=== PATIENT | male | born 1950 | race Caucasian/White ===

== ENCOUNTER 2024-01-14 19:21 | Emergency (ER) | payer OTHER, SELFPAY ==
[2024-01-14 19:33] VITALS: BP 129/79
[2024-01-14 19:48] LABS: % Basophils 0.7 % (0-2); % Eosinophils 0.8 % (0-6); % Immature Granulocytes 0.3 % (0-0.5); % Lymphocytes 28.7 % (20.5-51.1); % Monocytes 6.2 % (1.7-9.3); % Neutrophils 63.3 % (42.2-75.2); Absolute Basophils 0.1 10^3/uL (0-0.2); Absolute Eosinophils 0.1 10^3/uL (0-0.7); Absolute Lymphocytes 2.2 10^3/uL (1.2-3.4); Absolute Monocytes 0.5 10^3/uL (0.1-0.6); Absolute Neutrophils 4.8 10^3/uL (1.4-6.5); Hematocrit 35.6 % (39.0-52.0); Hemoglobin 12.9 g/dL (13.0-18.0); Mean Corp Hgb Conc. 36.2 g/dL (33.0-37.0); Mean Corpuscular Hgb 33.3 pg (27.0-31.0); Mean Platelet Volume 8.5 fL (7.4-10.4); Nucleated Red Blood Cells % 0 % (-); Platelet Count 281 10^3/uL (130-400); Red Blood Cell Count 3.87 10^6/uL (4.70-6.10); White Blood Cell Count 7.6 10^3/uL (4.8-10.8)
[2024-01-14 20:04] LABS: ALT (SGPT) 23 U/L (0-50); AST (SGOT) 31 U/L (17-59); Albumin 4.3 g/dl (3.5-5.0); Alkaline Phosphatase 44 U/L (38-126); Blood Urea Nitrogen 22 mg/dl (9-20); Calcium 9.3 mg/dl (8.4-10.2); Carbon Dioxide 27 mmol/L (22-30); Chloride 103 mmol/L (98-107); Glucose 138 mg/dl (70-99); Lipase 38 U/L (23-300); Potassium 3.8 mmol/L (3.5-5.1); Sodium 139 mmol/L (135-145); Total Protein 6.7 g/dl (6.3-8.2); eGFR > 60.00
--- NOTE | 2024-01-14 20:42 | ED.GENMED ---
History of Present Illness
General
Chief Complaint: Abdominal Pain
Time Seen by Provider: 01/14/24 20:42
History of Present Illness
History of Present Illness:
HPI: The patient presents with discomfort in the periumbilical region. He has had no fevers. The pain worsens when he tries to bend over at the torso. He has history of periumbilical and left inguinal hernia repair in July 2019.
EXAM:
GENERAL: Well appearing in no distress
HEENT: Moist oral mucosa
CARDIOVASCULAR: No murmurs, normal heart rate, regular rhythm, No chest wall tenderness
PULMONARY: No respiratory distress, breath sounds are clear and equal
ABDOMEN: Soft with no peritoneal signs, no significant tenderness�see below
NEUROLOGIC: Excellent strength all extremities, no coordination deficits
PSYCHIATRIC: Appropriate mental status, normal insight and judgement
EXTREMITIES: Nontender, no edema, moves all extremities equally
SKIN: There is a focal area of indurated tissue in the periumbilical region which is not significantly tender, spreading from this area there is a patch of erythema which is warm consistent with cellulitis
TIME OF INITIAL ENCOUNTER: 8:45 PM
NUMBER AND COMPLEXITY OF PROBLEMS ADDRESSED AT THE ENCOUNTER
� Chronic conditions affecting care: Bronchiolitis, former smoker, high blood pressure, hyperlipidemia, has had hernia repair
� Acute Exacerbation and/or Progression of Chronic Illness: This is an acute problem
� Differential Diagnosis includes: Abdominal wall cellulitis, umbilical hernia, incarcerated hernia unlikely based on physical examination
AMOUNT AND/OR COMPLEXITY OF DATA TO BE REVIEWED AND ANALYZED
� I performed an independent evaluation of and my interpretation is:
EKG:
CT: CT shows inflammatory changes of the subcutaneous tissue but no drainable fluid collection
X-rays:
Laboratory Studies: White count 7.6, hemoglobin 12.9, chemistries relatively unremarkable
Other:
� Review of other/old records: The patient was seen here in July 2019 with abdominal wall hematoma
� Clinical information was obtained by an independent historian: I spoke to the at bedside
� Prescriptions/Medications Considered but not given:
� Further testing considered but not performed:
RISK OF COMPLICATIONS AND/OR MORBIDITY OR MORTALITY OF PATIENT MANAGEMENT
� Social determinants of health affecting care: Lives at home
� Discussion with other providers:
� Escalation of care including admission/observation vs risk of discharge considered: The patient appears fairly comfortable. He has no pain on reassessment at 10:55 PM. White count is normal. Gave a dose of Ancef and will
start Keflex for presumed abdominal wall cellulitis.
Past History
Past History
ED Past Medical History: HTN, Hypercholesterolemia and Other (Sleep apnea)
ED Past Surgical History: Orthopedic (Right knee replacement 2002) and Other (Umbilical and Inguinal hernia repair 07/21/2019, hemorrhoidectomy)
Social History
Tobacco: Non-smoker
Alcohol: Occasional
Drug: None
Personal:
Living: with family
Phy Exam
Physical Exam
Physical Exam:
See HPI
Course
Orders/Labs/Results
Orders:
Orders
01/14/24 19:39
Complete Blood Count/With Diff Urgent
Comprehensive Metabolic Panel Urgent
Lipase Urgent
01/14/24 20:51
CT Abd/pelvis W Iv Cont Urgent
Comment:
Reason For Exam: periumb pain prior umb hernia surgery
01/14/24 20:52
Acetaminophen [Tylenol] 1,000 mg PO NOW STA
01/14/24 22:41
CeFAZolin 1 GRAM [Ancef] 1 gram in 5 ml IV NOW
Abnormal Lab Results
01/14/24
19:39
RBC 3.87 L 10^6/uL
(4.70-6.10)
Hgb 12.9 L g/dL
(13.0-18.0)
Hct 35.6 L %
(39.0-52.0)
MCH 33.3 H pg
(27.0-31.0)
BUN 22 H mg/dl
(9-20)
Glucose 138 H mg/dl
(70-99)
01/14/24 19:39
01/14/24 19:39
Vital Signs
Initial and Last Documented VS:
Initial Vital Signs
Temp Pulse Resp BP Pulse Ox
98.8 F 90 18 129/79 99
01/14/24 19:33 01/14/24 19:33 01/14/24 19:33 01/14/24 19:33 01/14/24 19:33
Last Documented Vital Signs
Temp Pulse Resp BP Pulse Ox
98.8 F 90 18 129/79 99
01/14/24 19:33 01/14/24 19:33 01/14/24 19:33 01/14/24 19:33 01/14/24 19:33
*Critical Care Note
Total Time (30-74mins, 75-104mins- exclusive of procedures): Not Applicable
ED Attending Note
-
Portions of this chart may have been created with voice recognition software.� Occasional wrong word or��sound alike� substitutions may have occurred due to the inherent limitations of voice recognition software.
Discharge Plan
Departure
Patient Disposition: Home (Routine Discharge)
Date of Disposition: 01/14/24
Time of Disposition: 22:51
Patient with high blood pressure during this ER visit?: Yes
Discharge Problem:
Abdominal wall cellulitis
Instructions: Cellulitis (Skin Infection), Adult ED
Prescriptions:
New
cephalexin 500 mg capsule
500 mg PO TID Qty: 21 0RF
No Action
ascorbic acid (vitamin C) [Vitamin C] 500 MG tablet
500 mg PO DAILY
simvastatin 20 MG tablet
20 mg PO DAILY
omega [id number]-fish oil [Fish Oil] 1 EACH capsule
1 cap PO DAILY
lisinopril-hydrochlorothiazide 1 EACH tablet
1 tab PO BID
Referrals:
Tra Farnsworth MD [Family Provider] -
Activity Restrictions/Additional Instructions:
Your white count and other basic blood work was unremarkable. The CAT scan showed a 'tiny fat-containing periumbilical hernia and the skin and subcutaneous tissue showed some inflammation that may represent cellulitis; there is no drainable fluid'.
Follow-up your primary care doctor. Return here if worse at any time and you should return here on Wednesday if there has been no improvement by then.
Interventions
Interventions:
*General Assessment Last Done: 01/14/24 19:33
ED- Fall Risk Assessment Last Done: 01/14/24 21:22
TW-Jizlvp-Giiqsxrzoa Assessment Last Done: 01/14/24 21:22
Discharge Date and Time
Print Language: SERBIAN
[2024-01-14] MEDS: TYLENOL 1000 MG PO (21:12)
[2024-01-14 22:30] VITALS: BP 122/78
[2024-01-14 22:53] VITALS: BMI 32.6
[2024-01-14] MEDS: ANCEF 5 IV (23:06)
== END 2024-01-14 23:16 | disposition home or self-care (01) ==
LOC: EMR 19:21
PROVIDERS: Emergency Medicine; EMERGENCY PHYSICIAN Emergency Medicine; FAMILY PHYSICIAN Family Medicine
DX: L03.311 Cellulitis of abdominal wall (principal); E78.00 Pure hypercholesterolemia, unspecified; G47.30 Sleep apnea, unspecified; I10 Essential (primary) hypertension; Z96.651 Presence of right artificial knee joint
CPT/HCPCS: 99284; 96374; 74177; 80053; 83690; 85025; Q9967

== ENCOUNTER → 2024-04-06 15:58 | Outpatient (REF) | payer OTHER, SELFPAY | LOC: RCS 15:58 | PROVIDERS: ATTENDING PHYSICIAN Internal Medicine Cardiovascular Disease; FAMILY PHYSICIAN Family Medicine | DX: I48.91 Unspecified atrial fibrillation (principal) | CPT/HCPCS: 93306 ==

== ENCOUNTER → 2024-04-27 09:07 | Day surgery (SDC) | payer OTHER, SELFPAY ==
--- NOTE | 2024-04-27 11:06 | ITS.CL.CARDI ---
Claim [facility]ver - Cardioversion
Cardioversion
Procedure Report:
Procedure: Direct current electrical cardioversion
Pre-operative diagnosis: Persistent atrial fibrillation
Post-operative diagnosis: Persistent atrial fibrillation status post DC cardioversion to sinus rhythm
Anesthesia: MAC
Attending Physician: Berto Mcdermott MD
Procedure Description: The patient was brought to the electrophysiology laboratory in the fasting state. Adherence to anticoagulation regimen was confirmed. Informed consent was obtained from the patient prior to the start of the procedure.
Electrodes were placed on the patient and connected to an external defibrillator. Monitoring of blood pressure, ECG tracings, and pulse oximetry was initiated. The pads were applied to the patient in the anterior and posterior positions. The patient
was sedated by the anesthesiologist. A 200 joule and subsequent 300 joule biphasic synchronized shock was delivered to the patient under MAC anesthesia. Sinus rhythm was successfully restored. The patient recovered uneventfully from MAC anesthesia.
There were no immediate post-procedure complications. The patient left the lab in good condition. The attending physician was present throughout the entire procedure.
Impression: Successful direct current cardioversion with hindu of sinus rhythm after 200 joule and subsequent 300 joule biphasic synchronized shock.
== END ==
LOC: CATH 09:07
PROVIDERS: ATTENDING PHYSICIAN Internal Medicine Cardiovascular Disease; FAMILY PHYSICIAN Family Medicine; OTHER PHYSICIAN Internal Medicine Cardiovascular Disease
DX: I48.19 Other persistent atrial fibrillation (principal); I44.5 Left posterior fascicular block; I10 Essential (primary) hypertension; E78.5 Hyperlipidemia, unspecified; G47.33 Obstructive sleep apnea (adult) (pediatric); Z87.891 Personal history of nicotine dependence; Z79.01 Long term (current) use of anticoagulants
CPT/HCPCS: 92960; 93005

== ENCOUNTER → 2024-05-09 13:58 | Outpatient (REF) | payer OTHER, SELFPAY | LOC: PET 13:58 | PROVIDERS: ATTENDING PHYSICIAN Nurse Practitioner | DX: Z01.810 Encounter for preprocedural cardiovascular examination (principal); R53.83 Other fatigue; I48.91 Unspecified atrial fibrillation; R00.1 Bradycardia, unspecified; I10 Essential (primary) hypertension; G47.33 Obstructive sleep apnea (adult) (pediatric); R06.02 Shortness of breath | CPT/HCPCS: 78431; A9555; J2785 ==

== ENCOUNTER → 2024-07-24 09:22 | Outpatient (REF) | payer OTHER, SELFPAY | LOC: HWRCS 09:22 | PROVIDERS: ATTENDING PHYSICIAN Nurse Practitioner; FAMILY PHYSICIAN Family Medicine | DX: I49.3 Ventricular premature depolarization (principal) | CPT/HCPCS: 93306 ==

== ENCOUNTER 2024-08-03 07:10 | Day surgery (SDC) | payer OTHER, SELFPAY ==
[2024-08-03 07:48] VITALS: BMI 32.1
== END 2024-08-03 09:48 | disposition home or self-care (01) ==
LOC: CATH 07:10
PROVIDERS: ATTENDING PHYSICIAN Internal Medicine Cardiovascular Disease; FAMILY PHYSICIAN Family Medicine; OTHER PHYSICIAN Internal Medicine Cardiovascular Disease
DX: I08.3 Combined rheumatic disorders of mitral, aortic and tricuspid valves (principal); I08.8 Other rheumatic multiple valve diseases; I70.0 Atherosclerosis of aorta
CPT/HCPCS: 93312; 93320; 93325

== ENCOUNTER 2024-08-08 07:06 | Day surgery (SDC) | payer OTHER, SELFPAY ==
[2024-08-08] VITALS (9 sets, daily range): BP systolic 124–174; BP diastolic 77–92; BMI 32.4
[2024-08-08 07:38] LABS: Hematocrit 41.2 % (39.0-52.0); Hemoglobin 15.2 g/dL (13.0-18.0); Mean Corp Hgb Conc. 36.9 g/dL (33.0-37.0); Mean Corpuscular Hgb 34.5 pg (27.0-31.0); Mean Corpuscular Volume 93.6 fL (80.0-94.0); Mean Platelet Volume 8.7 fL (7.4-10.4); Platelet Count 249 10^3/uL (130-400); Red Cell Dist. Width 12.7 % (11.5-14.5); White Blood Cell Count 6.6 10^3/uL (4.8-10.8)
[2024-08-08] MEDS: NSS 307 ML IV (07:45)
[2024-08-08 07:54] LABS: APTT 29.5 Sec (23.4-35.0); INR 1.04; PT 13.9 Sec (11.4-14.6)
[2024-08-08 07:55] LABS: ALT (SGPT) 23 U/L (0-50); AST (SGOT) 30 U/L (17-59); Albumin 4.5 g/dl (3.5-5.0); Alkaline Phosphatase 49 U/L (38-126); Blood Urea Nitrogen 15 mg/dl (9-20); Calcium 9.1 mg/dl (8.4-10.2); Carbon Dioxide 29 mmol/L (22-30); Chloride 104 mmol/L (98-107); Estimated Creatinine Clearance 109 ml/min; Glucose 96 mg/dl (70-99); Potassium 3.9 mmol/L (3.5-5.1); Sodium 144 mmol/L (135-145); Total Bilirubin 0.9 mg/dl (0.2-1.3); Total Protein 7.1 g/dl (6.3-8.2); eGFR > 60.00
--- NOTE | 2024-08-08 09:07 | ITS.CL.CATH ---
Certified [employer] Engineer - Catheterization
Cardiac Catheterization
Procedure Report:
LEFT AND RIGHT HEART CATHETERIZATION
Date of Procedure: August 08, 2024
Referring: Winston Martines MD
PROCEDURES:
1. Left heart catheterization, coronary angiogram.
2. Right heart catheterization.
3. Ultrasound-guided access
INDICATION: Pre-consideration for mitral valve repair versus replacement--referral for left and right heart catheterization to rule out obstructive CAD and assess invasive hemodynamics.
ACCESS:
1. Right radial artery, 6 Malaysian sheath, under ultrasound guidance.
2. Right brachial vein, 6 Malaysian sheath
Ultrasound was utilized for vascular access. The radial artery was visualized under ultrasound, and the vessel was patent and pulsatile. An image was stored permanently in the patient's medical record. Under direct ultrasound guidance, a 6 Malaysian
sheath was inserted into the artery using a micropuncture kit through a modified Seldinger technique.
HEMODYNAMICS : (mmHg)
RA (m) : 7
RV (s/d,m) : 35/4, 8
PA (s/d, m) : 35/14, 23
PCWP (m) : 14
PA saturation: 76.1% on room air
AO saturation: 91.9% on room air
SVC saturation: 73.2% on room air
Cardiac Output : 7.18 L/min
Cardiac Index : 3.27 L/min/m-2
Systemic vascular resistance: 924 dsc^(-5)
Pulmonary vascular resistance: 1.06 mattson unit
Heart rate: 63 bpm
AO (s/d) : 121/70
LV (s/d) : 122/7
LVEDP : 14
CORONARY FINDINGS
DOMINANCE: Right
LEFT MAIN: The left main artery is a large-caliber vessel which gives rise to the left anterior descending artery and the left circumflex artery. In cranial views there is mild 10 to 20% ostial atherosclerotic plaque.
LEFT ANTERIOR DESCENDING: The left anterior descending artery is a large-caliber vessel which gives rise to 2 small to medium caliber diagonal branches as it courses to the anterior interventricular groove and wraps around the apex. There is 20 to
30% stenosis in the proximal LAD at the level of the takeoff of D1. Otherwise there is minimal luminal irregularities.
CIRCUMFLEX: The left circumflex artery is a medium caliber vessel which gives rise to 2 major obtuse marginal branches. There is minimal luminal irregularities.
RIGHT CORONARY ARTERY: The right coronary artery is a large-caliber, dominant vessel which gives rise to the right posterior descending artery and the right posterolateral system. There is minimal luminal irregularities.
SEDATION: 26 minutes of procedural sedation was utilized. An independent medical chemist was present to assist with and help manage the patient's level of consciousness and physiologic status.
RADIATION SUMMARY: Fluoro Time (min): 3.1, Dose (mGy): 437.35, DAP (Gy.cm2) : 31.47
Closure Device: 1. Vascular band over the right radial artery, 10 cc of air.
2. Manual pressure was held over the right brachial venous access site with successful hemostasis.
CONCLUSIONS
1. No obstructive coronary artery disease.
2. Mildly elevated right and left-sided filling pressures with normal cardiac output.
RECOMMENDATIONS
1. Wean radial band per protocol.
2. Aggressive management of cardiovascular risk factors.
3. Patient is scheduled to see Dr. Bertin Horton from cardiothoracic surgery for consideration for surgical mitral valve intervention.
4. Eventual referral for outpatient cardiac rehab
Copy to: Bertin Horton, Florentino Martines, Yanick Fry, Tra Farnsworth
Jannette Menjivar MD, [facility], [facility]
[2024-08-08] MEDS: NSS 1000 IV (09:46)
== END 2024-08-08 12:00 | disposition home or self-care (01) ==
LOC: CATH 07:06
PROVIDERS: ATTENDING PHYSICIAN Internal Medicine Interventional Cardiology; FAMILY PHYSICIAN Family Medicine; OTHER PHYSICIAN Internal Medicine Cardiovascular Disease
DX: I08.3 Combined rheumatic disorders of mitral, aortic and tricuspid valves (principal); I25.10 Atherosclerotic heart disease of native coronary artery without angina pectoris; Z79.01 Long term (current) use of anticoagulants; Z79.899 Other long term (current) drug therapy; I70.0 Atherosclerosis of aorta
CPT/HCPCS: 99152; 99153; 76937; 80053; 85027; 85610; 85730; 93460; C1894; Q9967

== ENCOUNTER 2024-08-29 05:06 | Inpatient (IN) | payer OTHER, SELFPAY ==
[2024-08-22 09:45] LABS: ALT (SGPT) 19 U/L (0-50); AST (SGOT) 27 U/L (17-59); Albumin 4.1 g/dl (3.5-5.0); Alkaline Phosphatase 51 U/L (38-126); Blood Urea Nitrogen 15 mg/dl (9-20); Carbon Dioxide 31 mmol/L (22-30); Chloride 104 mmol/L (98-107); Direct Bilirubin 0.2 mg/dl (0.0-0.4); Glucose 115 mg/dl (70-99); Sodium 141 mmol/L (135-145); Total Bilirubin 1.1 mg/dl (0.2-1.3); Total Protein 6.6 g/dl (6.3-8.2); eGFR > 60.00
[2024-08-22 09:48] LABS: % Basophils 0.7 % (0-2); % Eosinophils 0.9 % (0-6); % Immature Granulocytes 0.2 % (0-0.5); % Lymphocytes 20.1 % (20.5-51.1); % Monocytes 7.3 % (1.7-9.3); % Neutrophils 70.8 % (42.2-75.2); Absolute Eosinophils 0.1 10^3/uL (0-0.7); Absolute Lymphocytes 1.2 10^3/uL (1.2-3.4); Absolute Monocytes 0.4 10^3/uL (0.1-0.6); Absolute Neutrophils 4.2 10^3/uL (1.4-6.5); Hematocrit 39.8 % (39.0-52.0); Hemoglobin 14.3 g/dL (13.0-18.0); INR 1.36; Mean Corp Hgb Conc. 35.9 g/dL (33.0-37.0); Mean Corpuscular Hgb 34.5 pg (27.0-31.0); Mean Corpuscular Volume 95.9 fL (80.0-94.0); Mean Platelet Volume 8.8 fL (7.4-10.4); Nucleated Red Blood Cells % 0 % (-); Platelet Count 231 10^3/uL (130-400); Red Blood Cell Count 4.15 10^6/uL (4.70-6.10); White Blood Cell Count 5.9 10^3/uL (4.8-10.8)
[2024-08-22 09:49] LABS: APTT 34.6 Sec (23.4-35.0)
[2024-08-22 09:57] LABS: Urine Albumin Negative (Neg - Trace); Urine Bilirubin Negative (Negative); Urine Character Clear (Clear); Urine Color Yellow; Urine Glucose Negative (Negative); Urine Ketone Negative (Negative); Urine Leukocyte Negative (Negative); Urine Nitrite Negative (Negative); Urine Occult Blood 2+ (Negative); Urine Urobilinogen Negative (Neg - 1+)
[2024-08-22 10:34] LABS: Glycohemoglobin (HgbA1c) 5.3 % (4.0-5.6)
[2024-08-22 10:41] LABS: Urine Mucus Moderate
[2024-08-22 10:42] LABS: Urine Amorphous Seen; Urine Squamous Cell 0-2 /LPF (Few)
[2024-08-22 10:43] LABS: Urine White Cell 0-2 /HPF (0-5)
--- NOTE | 2024-08-22 11:02 | CM ---
spoke to pt in PAT, we discussed preop MV/TV teaching. he is previndep, lives with his in a 1 story home with 1 step to enter. he has a walker at home to use if needed and a cpap he uses at night. i asked him to bring in his own mask. he has
the cardiac educ book, soap and instructions. he is agreeable to a f/u visit from the ct transitional care nurse after dc. plan is for TV/MV repair 08/29. cm role explained and all questions answered.
[2024-08-22 14:01] VITALS: BMI 24.9
[2024-08-29] VITALS (7 sets, daily range): BP systolic 94–154; BP diastolic 71–108; BMI 31.5
[2024-08-29] MEDS: MAGNESIUM OXIDE 500 MG PO (06:12)
[2024-08-29] MEDS: PROTONIX 40 MG PO (06:12)
[2024-08-29] MEDS: BACTROBAN 2% OINTMENT 1 APPLIC NASAL ×2 (06:14→19:43)
--- NOTE | 2024-08-29 06:20 | W.PN.UPDATE ---
Update Note
Progress Note Update
Pt's HR in the 40's this AM. Preop Lopressor contraindicated and not given
--- NOTE | 2024-08-29 06:26 | W.CVOR.SURPR ---
CVOR Surgeon Immed Pre Op
-
I have examined this patient prior to performance of the scheduled procedure.
The patient's condition is unchanged from the time of the dictated/written History and
Physical and the patient is able to undergo the scheduled procedure.
MV Repair/ TV Repair / MAZE / WHITLEY Clip / Epicardial Pacing Wires
--- NOTE | 2024-08-29 06:51 | PTCARENOTE ---
Pt arrived to CVICU for SDA. pt changed in gown/socks, all jewlery removed. pt name/ confirmed, ID bands place. ABO drawn and sent. pt clipped per protocol and cleaned with CHG wipes, x2 home showers confirmed. home medications reviewed and
confirmed. all admission questions answered by pt. pre-op check list review with pt. pre-op medications administered, lopressor held due to Bradycardia per Dr Horton, see MAR. awaiting CVOR.
[2024-08-29 07:49] LABS: Glucose - POC 89 mg/dl (70-99); HCO3 - POC 30 mmol/L (21-28); Hematocrit - POC 35 % PCV (42-52); Hemodilution- POC No; Ionized Calcium - POC 1.22 mmol/L (1.15-1.33); O2 Saturation %Calculated-POC 72.7 % (94-98); PCO2 - POC 51 mmHg (35-48); PO2 - POC 40 mmHg (83-108); Potassium - POC 3.4 mmol/L (3.5-5.1); Sodium - POC 144 mmol/L (136-145); Specimen Type - POC Arterial; pH - POC 7.38 (7.35-7.45)
[2024-08-29 07:53] LABS: B.E. - POC 5.6 mmol/L; Glucose - POC 94 mg/dl (70-99); HCO3 - POC 30 mmol/L (21-28); Hematocrit - POC 34 % PCV (42-52); Hemodilution- POC No; Hemoglobin Calculated - POC 11.4; PCO2 - POC 40 mmHg (35-48); PO2 - POC 445 mmHg (83-108); Potassium - POC 3.4 mmol/L (3.5-5.1); Sodium - POC 142 mmol/L (136-145); Specimen Type - POC Arterial; pH - POC 7.48 (7.35-7.45)
[2024-08-29 07:56] LABS: Urine Albumin 2+ (Neg - Trace); Urine Bilirubin Negative (Negative); Urine Character Clear (Clear); Urine Color Yellow; Urine Glucose Negative (Negative); Urine Ketone Negative (Negative); Urine Leukocyte Negative (Negative); Urine Nitrite Negative (Negative); Urine Occult Blood 1+ (Negative); Urine Urobilinogen Negative (Neg - 1+)
[2024-08-29 08:15] LABS: Urine Bacteria Few (Negative); Urine Red Blood Cell 0-2 /HPF (0-2); Urine White Cell 16-20 /HPF (0-5)
[2024-08-29 08:16] LABS: Urine Squamous Cell 0-2 /LPF (Few)
[2024-08-29 08:17] LABS: Urine Hyaline Cast 0-2 /LPF (0-2); Urine Mucus Moderate
--- NOTE | 2024-08-29 08:21 | CM ---
Reviewed chart. Mr. Merritt is in the operating room today. Prior to admission he resides with his spouse in a one story home with one step to enter. Prior to admission he was independent with ambulation and adls. He has a walker and CPAP Machine
at home. He has a prescription plan. Medical work-up in progress. The discharge plan is to return home with his spouse and a home visit by the Transitional Care Nurse when medically stable.
[2024-08-29 08:33] LABS: ACT+ - POC 597 Seconds (82-134)
[2024-08-29 08:55] LABS: ACT+ - POC 603 Seconds (82-134)
[2024-08-29 09:23] LABS: B.E. - POC 5.7 mmol/L; Glucose - POC 109 mg/dl (70-99); HCO3 - POC 30 mmol/L (21-28); Hematocrit - POC 32 % PCV (42-52); Hemodilution- POC Yes; Hemoglobin Calculated - POC 10.9; Ionized Calcium - POC 1.02 mmol/L (1.15-1.33); PCO2 - POC 39 mmHg (35-48); PO2 - POC 389 mmHg (83-108); Potassium - POC 4.4 mmol/L (3.5-5.1); Sodium - POC 142 mmol/L (136-145); Specimen Type - POC Arterial; pH - POC 7.48 (7.35-7.45)
[2024-08-29 09:35] LABS: ACT+ - POC 567 Seconds (82-134)
[2024-08-29 09:49] LABS: B.E. - POC 7.4 mmol/L; Glucose - POC 129 mg/dl (70-99); HCO3 - POC 31 mmol/L (21-28); Hematocrit - POC 34 % PCV (42-52); Hemodilution- POC Yes; Hemoglobin Calculated - POC 11.7; Ionized Calcium - POC 1.11 mmol/L (1.15-1.33); O2 Saturation %Calculated-POC 99.9 % (94-98); PCO2 - POC 37 mmHg (35-48); PO2 - POC 286 mmHg (83-108); Potassium - POC 3.8 mmol/L (3.5-5.1); Sodium - POC 143 mmol/L (136-145); Specimen Type - POC Arterial; pH - POC 7.53 (7.35-7.45)
[2024-08-29 10:00] LABS: ACT+ - POC 526 Seconds (82-134)
[2024-08-29 10:19] LABS: B.E. - POC 4.7 mmol/L; Glucose - POC 124 mg/dl (70-99); HCO3 - POC 29 mmol/L (21-28); Hematocrit - POC 33 % PCV (42-52); Hemodilution- POC Yes; Hemoglobin Calculated - POC 11.3; Ionized Calcium - POC 1.09 mmol/L (1.15-1.33); O2 Saturation %Calculated-POC 99.9 % (94-98); PCO2 - POC 41 mmHg (35-48); PO2 - POC 252 mmHg (83-108); Potassium - POC 4.3 mmol/L (3.5-5.1); Sodium - POC 144 mmol/L (136-145); Specimen Type - POC Arterial; pH - POC 7.46 (7.35-7.45)
[2024-08-29 10:28] LABS: ACT+ - POC 482 Seconds (82-134)
[2024-08-29 10:57] LABS: B.E. - POC 2.6 mmol/L; Glucose - POC 114 mg/dl (70-99); HCO3 - POC 27 mmol/L (21-28); Hematocrit - POC 34 % PCV (42-52); Hemodilution- POC Yes; Hemoglobin Calculated - POC 11.5; Ionized Calcium - POC 1.07 mmol/L (1.15-1.33); O2 Saturation %Calculated-POC 99.9 % (94-98); PCO2 - POC 40 mmHg (35-48); PO2 - POC 242 mmHg (83-108); Potassium - POC 4.4 mmol/L (3.5-5.1); Sodium - POC 143 mmol/L (136-145); Specimen Type - POC Arterial; pH - POC 7.44 (7.35-7.45)
[2024-08-29 11:05] LABS: Glucose - POC 119 mg/dl (70-99); HCO3 - POC 25 mmol/L (21-28); Hematocrit - POC 36 % PCV (42-52); Hemodilution- POC Yes; Hemoglobin Calculated - POC 12.2; Ionized Calcium - POC 1.24 mmol/L (1.15-1.33); PCO2 - POC 32 mmHg (35-48); PO2 - POC 341 mmHg (83-108); Potassium - POC 4.1 mmol/L (3.5-5.1); Sodium - POC 143 mmol/L (136-145); Specimen Type - POC Arterial
[2024-08-29 11:06] LABS: ACT+ - POC 134 Seconds (82-134)
--- NOTE | 2024-08-29 11:40 | PTCARENOTE ---
Pre-operative VS captured via [employer] monitor.
--- NOTE | 2024-08-29 11:47 | W.PN.CT.SURG ---
CT Surgery Operative Note
-
CARDIAC SURGERY OPERATIVE REPORT
Preoperative Diagnosis: Myxomatous mitral valve degeneration with severe insufficiency, moderately severe tricuspid valve insufficiency, atrial fibrillation
Postoperative Diagnosis: Same
Procedure(s) Performed:
1. Standard sternotomy with aortic and bicaval cannulation
2. Radical mitral valve repair [closure of cleft between P1 and P2, and P2 and P3, Kosse-Lopez cords placed to the posterior leaflet x 3, cleft closure between A2 and A3, 38 mm band annuloplasty]
3. Simple tricuspid valve repair [30 mm band annuloplasty]
4. Left atrial maze [combination of RF and cryo ablation]
5. Left atrial appendage exclusion
6. Placement of permanent epicardial pacing wires on the RV and RA
7. Transesophageal echocardiography
8. Placement of temporary atrial ventricular pacing wire
Date of Surgery: 08/29/2024
Comorbidities:
1. Severe mitral valve insufficiency secondary to type II pathology with flail segment and prolapse and flail (torn cords) of P2, symptomatic
2. Bradycardia at baseline with heart rates in the 30s to 40s
3. History of atrial fibrillation, paroxysmal
4. Moderately severe tricuspid valve insufficiency
5. Hypertension
6. Hyperlipidemia
7. PSVT with PVCs
8. LILIANA on CPAP
9. Morbidly obese with a BMI of greater than 30
10. Multiple urological procedures
Attending Surgeon: Bertin Horton MD, MS
Assistants: Tasneem Wang PA-C (present and necessary to veterinary assistant, retraction, suction, exposure, suture management, and wound closure under my direction)
Anesthesiology: Sanket Clark MD and Ponce Briseno CRNA
Scrub and Circulating RNs: Dianna Barr, RN, Son Perry RN
Meat Trimmer: Marium Guerrero CCP
Anesthesia: GETA
EBL: per perfusion records
Products: None
CPB Time: 120 minutes
Aortic Cross Clamp Time: 105 minutes
Indication(s) for Procedures: This is a 73-year-old male who has become increasingly shortness of breath with activities with overall decline in exercise capacity. He has known mitral valve insufficiency with a large Coanda effect that was severe
in its severity. He also had mildly severe tricuspid valve insufficiency and biatrial dilatation and paroxysmal atrial fibrillation. In the office he had a heart rate in the 40s given his history of atrial fibrillation he was offered a left atrial
maze in conjunction to his mitral valve repair and tricuspid valve repair. Due to his higher risk of needing a permanent pacemaker, and with his tricuspid valve repair making RV access likely difficult, I plan to implant epicardial pacing wires.
Mitral Valve Description: Thickening of most of the posterior leaflet with a large prolapse segment of P2 and some torn cords at the free margin, significant asymmetrical annular dilatation mostly towards P2 and P3. Large cleft between P1 and P2
and P2 and P3, small cleft between A2 and A3.
Findings: His left ventricular ejection fraction preoperatively was on the lower end of normal without significant regional wall motion abnormalities. He had mild to moderate degree of tricuspid valve insufficiency at the beginning of the case
however on his preoperative echocardiograms he had known moderately severe tricuspid valve insufficiency. His mitral valve had a flail segment with some torn cords at the free margin of P2 and large cleft between P1 and P2 and P2 and P3. The flail
cords was resected and then P2 and P3 was imbricated as was P1 and P2. 3 CV 4 Kosse-Lopez sutures were placed along the posterior leaflet mostly aimed towards P2. A total of 11 nonpledgeted 2 Ethibond sutures were placed circumferentially from
trigone to trigone securing a 38 mm band annuloplasty. There was only trace residual mitral valve insufficiency between clefts, no systolic anterior motion of the leaflets, and a mean gradient of 0 to 1 mmHg across the valve. This was done with
core knots. Given the significantly dilated left atrium and annulus, I was unable to test his valve properly intraoperatively however the physiology looked appropriate and so we continued moving forward. A full left atrial maze was performed using
a combination of encompass RF ablation to perform the posterior wall isolation and left atrial appendage line into the left superior pulmonary vein. Cryo was then used to complete the lesion set for the coronary sinus and mitral annular lines. The
left atrial appendage was clipped with a 35 mm device flush to the base. The tricuspid valve was accessed via the right atrium and repaired using a 30 mm band annuloplasty tying a total of 10 nonpledgeted 2 Ethibond sutures from the midportion of
the septal leaflet to the anterior septal commissure. A set of epicardial pacing wires was placed on the RV base and a set was placed at the right atrial appendage and was tested intraoperatively secured in place with 5-0 Prolene sutures. The
ventricular pacing wires yielded an excellent threshold with a voltage of 0.5, impedance of 1178, and the right atrial side initially required higher threshold then reduced by half as the case continue to a voltage of 3.5 and impedance of 856.
Temporary atrial ventricular pacing wires were also left and placed in order to control his rhythm. At the conclusion of the case his index had remained stable at 1.8-1.9 from 1.9 preoperatively. He did not require any inotropic support, he did
progress into a junctional rhythm in the 50s to 60s and so we AV paced him at a higher rate. Dobutamine was also started intraoperatively but then was quickly weaned as he became hypotensive.
Ablation Lines:
1. Box lesion to posterior LA wall
2. WHITLEY lesion + WHITLEY Exclusion + Division of Ligament of Jaylan
3. Coronary sinus lesion
4. Posterior mitral annular line toward P2/P3
Specimen(s): None.
Prosthesis:
1. 35 mm clip, serial #[id number]
2. Physio flex annuloplasty band, 38 mm, serial #[id number]
3. TriAD tricuspid annuloplasty band, 30 mm, serial number [id number]
4. Ventricular epicardial wires, serial number L [id number] (Medtronic)
5. Atrial epicardial wires, serial number L [id number] ([employer]tronic)
6. 3 CV 4 Kosse-Lopez sutures to anchor the posterior leaflet
Description of Procedure: The patient was taken to the operating room. Their identity and procedure to be performed were verified and they were positioned supine on the operating table. Induction via general anesthesia with endotracheal intubation
was performed and central venous access and arterial monitoring were inserted. A preoperative transesophageal echocardiogram was performed to assess cardiac function and valvular function. The patient was then prepped and draped from chin to feet in
a sterile fashion. A preoperative time-out was performed with all members of the team present. A midline chest incision was performed along with median sternotomy. The innominate vein was isolated. Full heparinization was given (a total of 45,000
units). We created a pericardial well. The aortic cannulation site was chosen where it was soft, pliable, and free of calcium. Cannulation was performed with an arterial cannula in the ascending aorta, angled metal tip cannular in the superior vena
cava and straight bendable cannula in the inferior vena cava. The arterial cannula line had an appropriate bounce and correlating pressures. Next, a root vent/antegrade cannula was inserted into the ascending aorta. The ACT was confirmed to be over
400 and retrograde autologous priming was performed before commencing cardiopulmonary bypass. At this point the SVC was away from the right pulmonary vein and the oblique sinus was developed manually. The encompass clamp was placed
underneath the SVC and IVC across the transverse and oblique sinuses and 3 successful pairs of ablation were performed using RF ablation. The pulmonary artery was away from the aorta to facilitate a clamp site. The aortic cross-clamp was
placed after decreasing the flow on the bypass and mean arterial pressure. A total of 1.2L initial dose of antegrade Del-Nido cardioplegia solution was given and planned for re-dosing every 60 minutes as necessary. There was rapid electro-mechanical
arrest of the heart at 300 cc of cardioplegia. The left ventricle was observed for distention on echocardiogram and manual palpation. Cold slush was placed into a lap on the RV and we systemically cooled to 34 degrees centigrade. Once the heart was
fully arrested, it was rotated medially and the ligament of Jaylan was divided. The tip of the left atrial appendage was then cut off and the encompass clamp was then passed through the appendage into the left superior pulmonary vein to complete
2 more pairs of successful ablation lines. The left atrial appendage was then sized with 35 mm device which was applied flush to the base.
Carbon dioxide was used to flood the field. The mitral valve was access via the left atrium at Sondergaard's groove followed by valve analysis. 2 additional cryo lines were created towards the mitral annulus and the coronary sinus. The mitral
valve was repaired as described above. The left ventricular vent was repositioned across the mitral valve into the left ventricular and the left atrium was closed with a 3-0 prolene. At this point Vesseloops were used to snare the SVC and IVC and a
vertical incision was created along the right atrium and stay sutures were placed. A total of 10 nonpledgeted 2 Ethibond sutures were placed circumferentially from the midportion of the septal leaflet to the anterior septal commissure. This
secured at 30 mm band [address]oplasty in place which was tied down manually. At this point the first layer of closure of the right atrium was then performed with 5-0 Prolene and I turned my attention towards placing epicardial pacing leads on the RV
basilar wall. Once this was completed, the head was dropped down and the area maneuvers were performed. The snares were removed after dropping flows on cardiopulmonary bypass, the cross-clamp was removed, flows were then brought up accordingly.
While the heart was reperfusing, the remainder of the right atrial closure was performed in her second running layer. Temporary atrial ventricular pacing wires were also placed at the SVC right atrial junction and the base of the RV. I also placed
permanent epicardial wires at the right atrial appendage. Both the RV and RA permanent leads were tested.
Transesophageal echocardiography revealed no evidence of systolic anterior motion and ventricular function was normal. Once de-airing was satisfactory the left ventricular and root vents were removed. After verifying acceptable parameters, we
initiated weaning from cardiopulmonary bypass. Once we were off cardiopulmonary bypass, the venous cannulas was clamped and removed sequentially. A test dose of protamine was administered and the patient was monitored for any adverse reaction before
resuming protamine. Once half of the protamine dose was delivered, pump suckers were turned off and the systolic blood pressure was lowered for aortic decannulation. The aortic cannula was removed and purse strings were tied down. All cannulation
sites were oversewn with a 4-0 prolene. The left atrial suture line was inspected and hemostasis was confirmed. I then tunneled the permanent epicardial leads through the second intercostal space towards the right chest after making a small
incision over where a future permanent pacemaker would lie. A pocket was developed and the tips of the leads were then capped and secured to the fascia with a 2-0 Ethibond suture. This was closed in layers. Mediastinal hemostasis was obtained.
Two #24 Luis Daniel drains were placed within the pericardium. The sternum was approximated with 4 #7 single and 3 #8 double stainless steel wires. I made sure that the epicardial leads were free from the chest closure wires and not snagged or damage.
Fascia was approximated with #1 vicryl suture. The subcutaneous, dermis and epidermis were closed in layers in a running fashion. The skin wound was cleansed and dressed.
All instrument, sponge, and needle counts were confirmed to be correct x 2 at the end of the operation. The patient was transferred to the cardiac intensive care unit in critical but stable condition.
I, Dr. Betrin Horton, was present, scrubbed for, and performed all critical elements of this procedure.
Bertin Horton MD, MS
Cardiothoracic Surgeon
[facility]
This dictation was created using the [employer] dictation system. Please excuse any grammatical, typographical, or 'sound alike' errors
[2024-08-29 12:02] LABS: Glucose - Point of Care 129 mg/dl (70-99)
[2024-08-29] MEDS: LR 250 ML IV ×3 (12:06→16:48)
[2024-08-29 12:12] LABS: HCO3 27.9 mmol/L (21-28); Ionized Calcium 1.18 mMOL/L (1.15-1.33); PCO2 43 mmHg (35-48); PO2 91 mmHg (83-108); Potassium 3.9 mMOL/L (3.5-5.1); Sodium 139 mMOL/L (136-145); pH 7.42 (7.35-7.45)
[2024-08-29 12:13] LABS: O2 Therapy 70
[2024-08-29 12:18] LABS: Hematocrit 35.1 % (39.0-52.0); Hemoglobin 12.8 g/dL (13.0-18.0); Platelet Count 204 10^3/uL (130-400)
[2024-08-29] MEDS: ANCEF 10 IV ×2 (12:24)
[2024-08-29] MEDS: NEURONTIN PO ×2 (12:24→15:02)
[2024-08-29] MEDS: NSS 500 IV (12:24)
[2024-08-29] MEDS: KCL 50 IV ×2 (12:25→13:11)
[2024-08-29 12:27] LABS: INR 1.43; PT 17.7 Sec (11.4-14.6)
[2024-08-29 12:31] LABS: Blood Urea Nitrogen 22 mg/dl (9-20); Estimated Creatinine Clearance 108 ml/min; Glucose 126 mg/dl (70-99); Magnesium 2.8 mg/dl (1.6-2.3)
[2024-08-29 12:59] LABS: Glucose - Point of Care 141 mg/dl (70-99)
--- NOTE | 2024-08-29 13:01 | W.PN.UPDATE ---
Update Note
Progress Note Update
73-year-old male was electively admitted on 08/29/2024 for mitral and tricuspid valve repairs, maze, and left atrial appendage clip due to mitral regurgitation with torn cord and tricuspid regurgitation and history of atrial fibrillation
IV fluids: 900
U.O.:� 400
Blood:� none
Wires:� v-wires
Infusions: Cardene @ 2.5, Precedex @ 0.5, Insulin
�
NEURO: sedated, pupils +2mm B/L
RESP: #8OT @23cm> 550/40%/14/5. Lungs clear B/L. 2 mediastinal 5cc on arrival) chest tubes to -20cm suction. Sanguineous drainage
CV: RRR +S1, S2, no S3, no�rub, no murmur. Dermabond to median sternotomy. RIJ w/[place] locked @ 45cm. PA 29/12; CVP 9; C.O 4.73/CI 2.18
ABD: round, soft, no BS
EXT: no edema, +2/4 DP pulses B/L, no femoral bruit, left radial A-line intact
: Cardoso with clear yellow urine
�
A/P: POD #0 s/p radical mitral valve repair [closure of cleft between P1 and P2, and P2 and P3, Alton-Lopez cords placed to the posterior leaflet x 3, cleft closure between A2 and A3, #38 mm band annuloplasty], tricuspid valve repair [#30 mm band
annuloplasty], RF/Cryo left atrial maze, Left atrial appendage #35mm clip
RALPH: EF�40%, trace MR, MV mean 0mmHg, no TR, TV mean 0mmHg
- wean and extubate
- will need instruction regarding antibiotic prophylaxis for dental and invasive procedures
- Insulin infusion x 24h as not diabetic
�
# acute surgical blood loss anemia-expected
- trend CBC
�
# Atrial fibrillation
- currently NSR w/RBBB
- oral Amio prophylaxis
- resume Eliquis when tolerating oral intake
�
# Hyperlipidemia
- resume�Lipitor 20mg HS
[2024-08-29] MEDS: TYLENOL PO (13:13)
--- NOTE | 2024-08-29 13:15 | PTCARENOTE ---
Patient received from CVOR s/p radical MV repair/TV repair/WHITLEY exclusion/LA maze/permanent epicardial pacing wires to RA/RV. Intubated w/8.0 ETT @ 23, SaO2 99%, titrating FiO2 as able. RIJ Cordis/Robards-Marshal catheter, L radial arterial lines present -
leveled, flushed, and calibrated w/good waveforms returned. Epicardial A+V wires, rate reduced by physician at bedside. Mediastinal chest tubes x 2, Y-connected to one pleurevac - placed to -20cm suction w/no air leaks noted. Cardoso catheter to
gravity. All procedural sites stable. Initial CI 2.18. See work list for full assessment, interventions performed, and intravenous infusions and titrations.
--- NOTE | 2024-08-29 13:29 | W.PN.CARDCBS ---
Addendum entered and electronically signed by Jannette Menjivar MD 08/29/24 15:54:
I saw and examined the patient.
The Research Analyst's note was reviewed and I agree with the note.
Comment: Patient is postop day 0 status post radical mitral valve repair, tricuspid valve repair, MAZE, WHITLEY clip by Dr. Horton, doing well hemodynamically. 1 mcg/kg/min of Levophed.
.
Vital signs and lab work reviewed. Patient is intubated/sedated, regular rate, normal S1 and S2, no murmurs, rubs or gallops, sternotomy wound is clean, dry and intact, lungs clear to auscultation anteriorly, abdomen is soft, nontender,
nondistended, warm extremities.
ECG: SR, new RBBB, non-specific ST-T changes
Recommendations:
1. Wean sedation and ventilator as tolerated with goal to extubate this evening.
2. Wean pressor support as tolerated.
3. Continue to monitor heart rhythm postoperatively along with blood counts and renal function.
4. Continue postoperative supportive care.
Jannette Menjivar MD, [facility], [facility]
Original Note:
Today's Communication / Plan
-
continue post op care
Impression / Plan
-
Primary Ada Accommodation Consultant: Dr. Florentino Martines
Assessment:
Severe mitral valve insufficiency with flail/torn cords of P2 and prolapse, symptomatic status post radical mitral valve repair, simple tricuspid valve repair, MAZE and WHITLEY clip, placement of permanent epicardial pacing wires on the RV and RA 08/29/24
Sinus bradycardia
Paroxysmal atrial fibrillation
s/p CV 04/24/24
chronic OAC with eliquis
Hypertension
Hyperlipidemia
PVCs, 10% burden historically by holter 2023
LILIANA on CPAP
Obesity
ECHO 07/24/24: EF 50%, abnormal septal motion in setting of bigeminy, mild concentric LVH, dilated RV, severe eccentric MR with posterior leaflet prolapse, AAC, trivial AR, moderate TR, PAP 50 to 55 mmHg
RALPH 08/03/2024: EF 65%, severely dilated LA, mildly dilated RA, severe eccentric MR prolapse with torn cord located predominantly at P1/P2, mild AR, moderate to severe TR, systolic flow reversal in pulmonary veins
Plan:
-s/p radical mitral valve repair, simple tricuspid valve repair, MAZE and WHITLEY clip, placement of permanent epicardial pacing wires on the RV and RA 08/29/24
-off pressors. remains on insulin @2.6
-CI 2.18.
-hgb 12.8. will resume OAC post op when ok per CT surgery, was on eliquis preop
-EKG NSR with RBBB, new compared to prior with inferior inversion compared to prior, will follow
-continue post op care
-Prior to admission was on Norvasc 2.5 mg twice daily, Lasix 20 mg p.o. daily, lisinopril 40 mg p.o. daily. Will resume postoperatively as blood pressure tolerates. He has not been on AV chaparrita blocking agents as an outpatient due to history of
bradycardia
-d/w nursing
Progress Note - Ada Accommodation Consultant
Subjective
Date of Service: August 29, 2024
intubated, sedated
Objective
Labs:
08/29/24 12:06
Labs
Hgb 12.8 g/dL (13.0-18.0) L 08/29/24 12:06
Hct 35.1 % (39.0-52.0) L 08/29/24 12:06
Plt Count 204 10^3/uL (130-400) 08/29/24 12:06
PT 17.7 Sec (11.4-14.6) H 08/29/24 12:06
INR 1.43 08/29/24 12:06
APTT 31.0 Sec (23.4-35.0) 08/29/24 12:06
Sodium 141 mmol/L (135-145) 08/22/24 08:44
Potassium 4.0 mmol/L (3.5-5.1) 08/22/24 08:44
BUN 22 mg/dl (9-20) H 08/29/24 12:06
Creatinine 0.7 mg/dL (0.7-1.3) 08/29/24 12:06
Glucose 126 mg/dl (70-99) H 08/29/24 12:06
Vital Signs and I&O:
Vital Signs
Temp Pulse Resp BP Pulse Ox
96.9 F L 57 14 154/108 96
08/29/24 13:00 08/29/24 13:02 08/29/24 13:02 08/29/24 05:56 08/29/24 13:04
Vital Signs
Temp Pulse Resp BP Pulse Ox
96.9 F L 57 14 154/108 96
08/29/24 13:00 08/29/24 13:02 08/29/24 13:02 08/29/24 05:56 08/29/24 13:04
Intake & Output
08/27/24 08/28/24 08/29/24 08/30/24
07:59 07:59 07:59 07:59
Intake Total 35.5 / 35.5
Output Total 105 / 105
Balance -69.5 / -69.5
Physical Exam
Physical Exam
GEN: No distress, intubated, sedated
HEENT: supple, mmm
LUNGS: CTA B/L, no wheezes/rales
CV: Reg, S1/S2, no murmur
ABD: soft, BS+, NT/ND
EXT: No cyanosis, clubbing. trace edema of B/L LE
NEURO: sedated
SKIN: Warm, pink, dry. No rash. Sternotomy incision and R chest incision c/d/i. CTs in place
[2024-08-29 14:00] LABS: Glucose - Point of Care 110 mg/dl (70-99)
--- NOTE | 2024-08-29 14:20 | PTCARENOTE ---
CI 1.82, DENISA Ana Laura at bedside, updated.
[2024-08-29 14:57] LABS: Glucose - Point of Care 107 mg/dl (70-99)
[2024-08-29 14:58] LABS: ACT+ - POC 104 Seconds (82-134)
--- NOTE | 2024-08-29 15:27 | CON.INTV ---
Consultation
Consultation Request
Date/Time Consultation Requested: 08/29/24
Date/Time Consultation Performed: 08/29/24
Performing Provider: Desmond
Reason for Consultation: CVICU
Medical History
-
History of Present Illness:
Patient is a 73-year-old male with previous history of mitral valve insufficiency, hypertension, LILIANA on CPAP, A-fib presenting for elective cardiac surgery. Patient has history of mitral disease resulting in severely enlarged left atrium due to
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 His EF is stable at 65% he also has, current moderately severe tricuspid cuspid valve disease. He does have
shortness of breath with exertion, with deteriorating clinical status in the past year. Underwent radical mitral valve repair, maze, permanent epicardial pacing wires on 08/29/2024 and tolerated procedure well. He is perioperatively mechanically
ventilated and admitted to CVICU for further management.
Past Medical History
Past Medical History: Other (see list below)
Social History
Tobacco: Non-smoker
Alcohol: None
Drug: None
Family History
Family History: Reviewed & Not Pertinent
Allergies / Home Medications
Allergies
Allergy/AdvReac Type Severity Reaction Status Date / Time
oxycodone [From OxyContin] AdvReac Nausea, Verified 08/18/24 13:26
vomiting
Home Medications
�Medication �Instructions �Recorded �Confirmed �Last Taken �Type
ascorbic acid (vitamin C) 500 mg 500 mg PO DAILY Supplement 08/17/18 08/29/24 08/22/24 08:00 History
tablet (Vitamin C)
apixaban 5 mg tablet (Eliquis) 5 mg PO BID Blood Clot 04/27/24 08/29/24 08/26/24 20:00 History
Prevention/Tx
furosemide 20 mg tablet 20 mg PO DAILY Fluid 08/03/24 08/29/24 08/28/24 08:00 History
Retention/Swelling
lisinopril 40 mg tablet 40 mg PO DAILY Heart Failure 08/03/24 08/29/24 08/26/24 08:00 History
acetaminophen 325 mg tablet 325 mg PO Q6H PRN mild pain 08/08/24 08/29/24 08/21/24 08:00 History
(Tylenol)
atorvastatin 20 mg tablet 20 mg PO QPM #30 tabs 08/08/24 08/29/24 08/28/24 20:00 Rx
melatonin 3 mg tablet 3 mg PO HS PRN insomnia 08/08/24 08/29/24 06/11/24 20:00 History
Methylprednisone 4 mg PO ONCE Anti-Inflammatory 08/29/24 08/29/24 08/28/24 08:00 History
amlodipine 2.5 mg tablet 2.5 mg PO BID Blood Pressure 08/29/24 08/29/24 08/28/24 20:00 History
azithromycin 250 mg PO Daily Lung/Breathing 08/29/24 08/29/24 08/26/24 08:00 History
Issues
Review of Systems
-
Unable to Obtain full review of systems at this time due to: Patient Intubation
Vitals / Labs / Diagnostic Testing
Vital Signs
Temp Pulse Resp BP Pulse Ox
98 F 57 14 94/71 99
08/29/24 15:00 08/29/24 15:00 08/29/24 15:00 08/29/24 13:42 08/29/24 15:00
Lab Data
08/29/24 12:06
Laboratory Results
08/29/24
12:06
PT 17.7 H
INR 1.43
APTT 31.0
pH 7.42
pCO2 43
pO2 91
HCO3 27.9
O2 Delivery Level 70
Diagnostic Testing:
Physical Exam
-
HEENT: Normocephalic, Anicteric and Moist Mucous Membranes
Cardiovascular: S1/S2 and Regular Rhythm
Respiratory: Clear and Non-Labored Respirations
GI: Soft, Non Distended and Non Tender
Neurology: Other (sedated/intubated)
Skin: Warm, Dry and Good Color
General: Comfortable and Other (NAD)
Assessment
-
Patient is a 73-year-old male with previous history of mitral valve insufficiency, hypertension, LILIANA on CPAP, A-fib presenting for elective cardiac surgery. Patient has history of mitral disease resulting in severely enlarged left atrium due to
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 His EF is stable at 65% he also has, current moderately severe tricuspid cuspid valve disease. He does have
shortness of breath with exertion, with deteriorating clinical status in the past year. Underwent radical mitral valve repair, maze, permanent epicardial pacing wires on 08/29/2024 and tolerated procedure well. He is perioperatively mechanically
ventilated and admitted to CVICU for further management.
Severe mitral valve insufficiency secondary to type II pathology with flail segment and prolapse and flail (torn cords) of P2, symptomatic s/p Radical mitral valve repair, LA Maze, permanent epicardial pacing wires 08/29/24
Perioperative mechanical ventilation
CHEN
Mild postop anemia
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
LILIANA on CPAP, follows Dr Logan, mild based on HST from [facility]
PAP mean pressure 13cm water
Essential hypertension
Bradycardia
Status post total left knee replacement
Hyperlipidemia
Atrial fibrillation on Eliquis
History of arthroplasty of right knee
Ventricular premature depolarization
Supraventricular tachycardia
Chronic fatigue
Plan
S/p MVR POD #0
Titrate off pressors per protocol
ECHO reviewed with normal function
PA catheter readings reviewed
Management of chest tubes per primary service
Intubated/sedated, initiate SAT when able
Pain control
RASS goal of 0 to -1
Intubated for procedure, SBT trial when patient able to spontaneously breath
Current vent settings: SIMV 580/14/40/5+
ABG(s) reviewed/adequate
CXR with no obvious opacities/infiltrates, low lung volumes, ETT in good position, lines/tubes in place
Extubate per protocol
Maintain supplement oxygen as needed
Prior history of pulmonary disease: LILIANA on CPAP
Can resume PAP post extubation
No Prior PFTs for review, no known history of lung disease
Can add nebulizers if needed
Aspiration precautions
Encouraged incentive spirometry, OOB/ambulation/early mobility
Advance diet as tolerated following extubation
GI prophylaxis if indicated for mechanical ventilation >48 hours
Monitor critical I/O's
Cardoso/chest tube output
Hb/platelets postoperatively stable
Trend CBC for now
Can transfuse if indicated for Hb <7, plt <50 in surgical patients
DVT prophylaxis including SCDs
Insulin protocol initiated and ongoing
Transition to SQ/off as indicated per team
We will follow
Diagnostic Data
Chest X-Ray: 08/29/24- Lungs: The lungs are clear considering the limited inspiration. No pleural effusion or pneumothorax.
CT Scan: AP 01/14/24- CHEST: The lung bases are clear. The heart is mildly enlarged.
Echo: RALPH 08/29/24- Overall LVEF is approximately 55% with no RWMA. Mild concentric left ventricular hypertrophy. Moderately dilated left atrium. Mildly dilated right atrium. Trace aortic insufficiency. Mild tricuspid regurgitation. Mild
pulmonic insufficiency. Severe mitral regurgitation. MR etiology is from P2 flail, and dilated MV annulus. Scattered mild atheroma seen in the distal aortic arch.
[facility] 08/08/24- HEMODYNAMICS : RA (m) : 7; RV (s/d,m) : 35/4, 8; PA (s/d, m) : 35/14, 23; PCWP (m) : 14
PA saturation: 76.1% on room air; AO saturation: 91.9% on room air; SVC saturation: 73.2% on room air
Cardiac Output : 7.18 L/min, Cardiac Index : 3.27 L/min/m-2, Systemic vascular resistance: 924 dsc^(-5), Pulmonary vascular resistance: 1.06 mattson unit
CONCLUSIONS- No obstructive coronary artery disease. Mildly elevated right and left-sided filling pressures with normal cardiac output.
PFT's:
Reports and relevant images were personally reviewed.
Critical Care time 51 mins -- The patient is admitted for acute critical illness for the treatment of vital organ failure and/or prevention of further life-threatening conditions. Total care includes time spent in review of history, physical exam,
medications, hemodynamic/ventilator parameters, laboratory data, imaging and discussion with house staff, pharmacy, respiratory therapy, digital forensics investigator, and nursing.
--- NOTE | 2024-08-29 16:06 | PTCARENOTE ---
Patient resting comfortably, drowsy but arousable and appropriate. CPAP weaned attempted, apnea noted. Patient returned to SIMV settings. SHIKHA Barbert to bedside, updated.
[2024-08-29 16:40] LABS: Hematocrit 36.5 % (39.0-52.0); Hemoglobin 13.3 g/dL (13.0-18.0); Platelet Count 246 10^3/uL (130-400)
[2024-08-29 17:01] LABS: Glucose - Point of Care 117 mg/dl (70-99)
[2024-08-29 17:08] LABS: B.E. 1.2 mmol/L; HCO3 26.6 mmol/L (21-28); Ionized Calcium 1.17 mMOL/L (1.15-1.33); PCO2 44 mmHg (35-48); PO2 163 mmHg (83-108); Potassium 4.9 mMOL/L (3.5-5.1); pH 7.39 (7.35-7.45)
[2024-08-29] MEDS: CALCIUM GLUCONATE 100 IV ×2 (17:12→19:43)
--- NOTE | 2024-08-29 17:22 | PTCARENOTE ---
Patient placed to CPAP wean. No apnea noted, good TV obtained. ABG obtained, results conveyed to DENISA Du. Patient extubated to 6lnc, SaO2 @ 98%. IS demonstrated to 750ml.
[2024-08-29] MEDS: ANCEF 5 IV (17:29)
[2024-08-29] MEDS: LOW STRENGTH ASPIRIN 81 MG PO (17:52)
[2024-08-29] MEDS: LIPITOR PO (18:01)
[2024-08-29 19:01] LABS: Glucose - Point of Care 102 mg/dl (70-99)
[2024-08-29] MEDS: TORADOL 15 MG IV (19:43)
[2024-08-29] MEDS: SENOKOT-S 1 TABLET PO (19:44)
[2024-08-29] MEDS: ZOFRAN 4 MG IV (20:03)
--- NOTE | 2024-08-29 20:10 | PTCARENOTE ---
Report received from BRANDAN Leger. Walking rounds done. Pt sleepy, yet arouses to voice and spontaneously at times. Speech clear. Equal extremity strength x 4. Able to make needs known. No apneic periods. Sats on 3L/NC are 97%. BBS present. Decreased
B bases. CDB and IS done. Peak IS 1000 mls. Toradol 15 mg IV given for 3/10 pain to sternum. Audible heart tones. Pt in SR-SB, occasional PVC. [place] Marshal catheter present. CI 2.3 at 1900 per Day shift RN. Levo at 1 mcg/min. Additional CaGluconate 2
GM IV given per order of PA. AV wires attached to pacing box, yet not plugged in. Attached for emergency access. Mediastinal CTs x 2, both to -20 cm suction. Red drainage. Q1 hr outputs. For pulse and wound assessments, see flowsheets. Pt c/o
nausea. Zofran 4 mg IV given. See MAR. Belly soft, nontender. Hypoactive bs x 4. Cardoso intact, draining clear, yellow murine. Hourly outputs recorded. Glycemic protocol maintained. at bedside. Ongoing plan of care.
[2024-08-29 21:11] LABS: Glucose - Point of Care 112 mg/dl (70-99)
[2024-08-29] MEDS: REGLAN 10 MG IV (21:37)
--- NOTE | 2024-08-29 22:00 | PTCARENOTE ---
Levo gtt off at 2100. Maintaining MAP 65-90. SBP currently 110-120's. Reglan 10 mg IV at 2130 for c/o nausea. CI checked at 2152 and is 2.28. Ongoing plan of care. remains at bedside. Spending the night.
--- NOTE | 2024-08-29 22:05 | PTCARENOTE ---
Pt with transient decrease in HR to 39 bpm. Appears SB to junctional on EKG strip. Event approximately 10 seconds. Remained normotensive. Remains neuro intact. Sats 97% on 3L/NC. RR 14-15 br/min. No apneic periods. SHIKHA Brito made aware. Holding
amiodarone per order of PA.
--- NOTE | 2024-08-29 22:50 | W.PN.CT ---
Assessment / Plan
-
Assessment:
-S/p Standard sternotomy/Radical mitral valve repair [closure of cleft between P1 and P2, and P2 and P3, [place]-Lopez cords placed to the posterior leaflet x 3, cleft closure between A2 and A3, 38 mm band annuloplasty]/Simple tricuspid valve repair [30
mm band annuloplasty]/Left atrial maze [combination of RF and cryo ablation]/ Left atrial appendage exclusion/Placement of permanent epicardial pacing wires on the RV and RA/ Placement of temporary atrial ventricular pacing wire, by Dr. Horton,
08/29/24, pod#1
-Severe mitral valve insufficiency secondary to type II pathology with flail segment and prolapse and flail (torn cords) of P2, symptomatic
-Bradycardia at baseline with heart rates in the 30s to 40s
-History of atrial fibrillation, paroxysmal S/p DCCV 04/24/24, on Eliquis
-Moderately severe tricuspid valve insufficiency
-Hypertension
-Hyperlipidemia
-PSVT with PVCs
-LILIANA on CPAP
-Class 1 obesity (BMI 31.5)
-Chronic fatigue
-Former tobacco use (quit 1971)
-Diverticulosis
-Arthritis
-S/p L TKA, 2019
-S/p R TKA
-S/P Inguinal herniorrhaphy
-S/P Umbilical herniorrhaphy
-S/p bilateral cataracts
-S/p Hemorrhoidectomy
-Acute postop blood loss/Anemia (stable without transfusion)
-Acute postop atelectasis/Left pleural effusion
-Acute postop hypovolemia with subsequent hypervolemia
-Acute postop new RBBB
Plan:
-No major issues overnight. Hemodynamically and neurologically stable
-Successfully extubated yesterday 08/29 @ 1715
-Weaned off Levophed gtt last night, remains on insulin gtt per protocol
-Last CI , U/O since OR 700mL
-Monitor chest tube output: 2meds , Rpl/med
-Noted to be in NSR and bradycardia postop. Will place both Amiodarone and BB on hold
-Will eventually resume Eliquis for PAF/MAZE
-Cont. current meds (ASA, Lipitor, Protonix; Amiodarone and BB on hold)
-D/C'd swan and a-line @ 0430
-Will d/c mcdonough @ 0600
-Will transition to tele phase today once off insulin gtt
-Maintain cordis
-Maintain temporary PW (will likely cut before d/c home)
-Maintain permanent epicardial pacing wires
-Encourage use of IS
-Wean off of O2 as tolerated
-OOB into chair/Ambulate
-Will likely obtain repeat echo tomorrow to re-evaluate valves
Subjective
-
Date of Service: August 29, 2024
Objective Data
-
Lab Results
08/29/24 16:09
08/29/24 12:06
PT 17.7 Sec (11.4-14.6) H 08/29/24 12:06
INR 1.43 08/29/24 12:06
APTT 31.0 Sec (23.4-35.0) 08/29/24 12:06
Vital Signs
Vital Signs
Temp Pulse Resp BP Pulse Ox
98.2 F 57 16 94/71 97
08/29/24 21:52 08/29/24 21:52 08/29/24 21:52 08/29/24 13:42 08/29/24 22:08
CT Intake/Output/Weight
08/29/24 08/29/24 08/30/24
06:59 18:59 06:59
Intake Total 1029.5 / 1320.5 291.0 / 1320.5
Output Total 450 / 660 210 / 660
Balance 579.5 / 660.5 81.0 / 660.5
SaO2: 97
[2024-08-29] MEDS: NEURONTIN 100 MG PO (22:52)
[2024-08-29] MEDS: TYLENOL 1000 MG PO (22:52)
[2024-08-29 23:01] LABS: Glucose - Point of Care 94 mg/dl (70-99)
[2024-08-30] VITALS (23 sets, daily range): BP systolic 104–145; BP diastolic 57–87; PULSE 57–89; O2SAT 94–97; BMI 32.0
[2024-08-30 00:52] LABS: Glucose - Point of Care 109 mg/dl (70-99)
--- NOTE | 2024-08-30 00:56 | PTCARENOTE ---
Repeat CI 2.36, SVR 1029. UO 25 mls for past hour. Pt with HR 50's, Normotensive; 110's/50's, MAPs 73. Awakens easily to voice. Remains neuro intact. Sats 97% on 3L/NC. remains at bedside. Glycemic protocol followed.
--- NOTE | 2024-08-30 02:40 | DOWNTIME ---
There was a [employer] Client Electronic Organ Technician Downtime on 08/30/2024 from 0100 to 08/30/2023 at 0235 . Downtime documentation of patient's care, including medication administrations, has been reconciled in the electronic record per guidelines. Refer to the
patient's paper chart under the miscellaneous tab to see printed paper medication records and downtime forms.
[2024-08-30] MEDS: ANCEF 5 IV ×2 (02:45→09:07)
[2024-08-30 02:58] LABS: Glucose - Point of Care 97 mg/dl (70-99)
[2024-08-30 03:12] LABS: Hematocrit 32.5 % (39.0-52.0); Hemoglobin 11.6 g/dL (13.0-18.0); Mean Corp Hgb Conc. 35.7 g/dL (33.0-37.0); Mean Corpuscular Volume 95.3 fL (80.0-94.0); Mean Platelet Volume 8.5 fL (7.4-10.4); Platelet Count 186 10^3/uL (130-400); Red Blood Cell Count 3.41 10^6/uL (4.70-6.10); Red Cell Dist. Width 13.2 % (11.5-14.5); White Blood Cell Count 15.1 10^3/uL (4.8-10.8)
[2024-08-30 03:18] LABS: Blood Urea Nitrogen 29 mg/dl (9-20); Calcium 8.8 mg/dl (8.4-10.2); Carbon Dioxide 29 mmol/L (22-30); Chloride 108 mmol/L (98-107); Estimated Creatinine Clearance 94 ml/min; Glucose 95 mg/dl (70-99); Magnesium 2.4 mg/dl (1.6-2.3); Potassium 4.6 mmol/L (3.5-5.1); Sodium 141 mmol/L (135-145); eGFR > 60.00
--- NOTE | 2024-08-30 04:26 | W.PN.CT ---
Today's Communication / Plan
-
Plan:
-No major issues overnight. Hemodynamically and neurologically stable
-Successfully extubated yesterday 08/29 @ 1715
-Weaned off Levophed gtt last night, remains on insulin gtt per protocol
-Last CI 2.45, U/O since OR 705mL
-Monitor chest tube output: 2meds 185/305. CxR this AM is clear
-Noted to be in NSR and bradycardia postop. Will place both Amiodarone and BB on hold
-Will eventually resume Eliquis for PAF/MAZE
-Cont. current meds (ASA, Lipitor, Protonix; Amiodarone and BB on hold)
-D/C'd swan and a-line @ 0500
-Will d/c mcdonough @ 0600
-Will transition to tele phase today once off insulin gtt
-Maintain cordis
-Maintain temporary PW (will likely cut before d/c home)
-Maintain permanent epicardial pacing wires
-Encourage use of IS
-Wean off of O2 as tolerated
-OOB into chair/Ambulate
-Will likely obtain repeat echo tomorrow to re-evaluate valves
Assessment / Plan
-
Assessment:
-S/p Standard sternotomy/Radical mitral valve repair [closure of cleft between P1 and P2, and P2 and P3, [place]-Lopez cords placed to the posterior leaflet x 3, cleft closure between A2 and A3, 38 mm band annuloplasty]/Simple tricuspid valve repair [30
mm band annuloplasty]/Left atrial maze [combination of RF and cryo ablation]/ Left atrial appendage exclusion/Placement of permanent epicardial pacing wires on the RV and RA/ Placement of temporary atrial ventricular pacing wire, by Dr. Horton,
08/29/24, pod#1
-Severe mitral valve insufficiency secondary to type II pathology with flail segment and prolapse and flail (torn cords) of P2, symptomatic
-Bradycardia at baseline with heart rates in the 30s to 40s
-History of atrial fibrillation, paroxysmal S/p DCCV 04/24/24, on Eliquis
-Moderately severe tricuspid valve insufficiency
-Hypertension
-Hyperlipidemia
-PSVT with PVCs
-LILIANA on CPAP
-Class 1 obesity (BMI 31.5)
-Chronic fatigue
-Former tobacco use (quit 1971)
-Diverticulosis
-Arthritis
-S/p L TKA, 2019
-S/p R TKA
-S/P Inguinal herniorrhaphy
-S/P Umbilical herniorrhaphy
-S/p bilateral cataracts
-S/p Hemorrhoidectomy
-Acute postop blood loss/Anemia (stable without transfusion)
-Acute postop atelectasis/Left pleural effusion
-Acute postop hypovolemia with subsequent hypervolemia
-Acute postop new RBBB
Discussed patient care with: Cardiology, Nursing, Respiratory Therapy, Pharmacy and Care Team
Subjective
Procedure
S/p Standard sternotomy/Radical mitral valve repair [closure of cleft between P1 and P2, and P2 and P3, [place]-Lopez cords placed to the posterior leaflet x 3, cleft closure between A2 and A3, 38 mm band annuloplasty]/Simple tricuspid valve repair [30
mm band annuloplasty]/Left atrial maze [combination of RF and cryo ablation]/ Left atrial appendage exclusion/Placement of permanent epicardial pacing wires on the RV and RA/ Placement of temporary atrial ventricular pacing wire, by Dr. Horton, 08/29/24
-
Date of Service: August 30, 2024
Pt c/o incisional pain, had nausea last night which has improved, now c/o sore throat
Objective Data
-
Lab Results
08/30/24 02:52
08/30/24 02:52
PT 17.7 Sec (11.4-14.6) H 08/29/24 12:06
INR 1.43 08/29/24 12:06
APTT 31.0 Sec (23.4-35.0) 08/29/24 12:06
Vital Signs
Vital Signs
Temp Pulse Resp BP Pulse Ox
98.3 F 61 13 124/71 97
08/30/24 04:00 08/30/24 04:00 08/30/24 04:00 08/30/24 04:00 08/30/24 04:00
CT Intake/Output/Weight
08/29/24 08/29/24 08/30/24
06:59 18:59 06:59
Intake Total 1029.5 / 1447.3 417.8 / 1447.3
Output Total 450 / 950 500 / 950
Balance 579.5 / 497.3 -82.2 / 497.3
SaO2: 97 (2L)
Physical Exam
-
General: Awake, Oriented and AOx3
Cardiovascular: Regular rate & rhythm, No Murmurs, No Rub and No Gallop
Respiratory: Decreased Breath Sounds (at bases, otherwise feels well)
Sternum: Stable
Incision: Clean, Dry, Intact and Dressing Intact
Extremities: Other (+trace edema)
Data Reviewed
-
Lab Results: Results Reviewed
Medications: Active Meds Reviewed
Chest X-Ray: Report Reviewed and Image Reviewed
ECG: Report Reviewed and Image Reviewed
[2024-08-30 04:56] LABS: Glucose - Point of Care 111 mg/dl (70-99)
[2024-08-30] MEDS: TYLENOL 1000 MG PO ×3 (05:10→23:08)
--- NOTE | 2024-08-30 06:40 | PTCARENOTE ---
Repeat CI at ~ 0300 was 2.45. Lab results and EKG known to PA. Pt delined at ~ 0500. SG cath d/c'ed per protocol. L radial A line d/c'ed per protocol. Cardoso d/c'ed at 0630. Bloody drainage to meatus. PA made aware. Drainage slowed after pressure and
time. Pt assisted to sitting position. C/O mild dizziness. BP 120/70's. Dizziness resolved. Pt helped up to standing, weighed on scale, then helped to chair. C/O 2/10 sternal pain. remains at bedside. Report to BRANDAN Leger.
[2024-08-30 06:56] LABS: Glucose - Point of Care 95 mg/dl (70-99)
[2024-08-30 07:49] LABS: Glucose - Point of Care 102 mg/dl (70-99)
--- NOTE | 2024-08-30 07:55 | W.PN.ANS.POP ---
Anesthesia Post Operative
- Anesthesia Post Op Note
Vital Signs Stable-See Nursing Note: Yes
Airway Patent: Yes
Adequate Pain Control: Yes
Change in Mental Status: No
Current Postoperative Nausea & Vomiting: No
Anesthesia Complications: No
General Anesthetic Recall: No
Unplanned Admission: No
Post Op Hydration Adequate: Yes
--- NOTE | 2024-08-30 08:00 | PTCARENOTE ---
Patient received from night shift manager resting oob in chair, AAO X 3, states pain controlled at this time. SB/NSR via cm, SaO2 @ 96% on 2lnc. RIJ Cordis w/kvo infusing. Epicardial A+V wires present. Mediastinal chest tubes x 2, Y-connected, no air leaks
or crepitus noted. Cardoso d/c'd this am, DTV. All procedural sites stable. Insulin infusing peripherally, titrating per glycemic protocol. Patient and at bedside, updated to plan of care for the day, in agreement. See work list for full
assessment and interventions performed.
[2024-08-30 08:38] LABS: Glucose - Point of Care 116 mg/dl (70-99)
[2024-08-30] MEDS: LIDOCAINE 4% PATCH TOPICAL (08:45)
[2024-08-30] MEDS: BACTROBAN 2% OINTMENT 1 APPLIC NASAL ×2 (09:06→19:55)
[2024-08-30] MEDS: MAGNESIUM OXIDE 500 MG PO ×2 (09:07→19:55)
[2024-08-30] MEDS: NEURONTIN 100 MG PO ×3 (09:07→23:08)
[2024-08-30] MEDS: SENOKOT-S 1 TABLET PO ×2 (09:07→19:56)
[2024-08-30] MEDS: PROTONIX 40 MG PO (09:07)
[2024-08-30] MEDS: LOW STRENGTH ASPIRIN 81 MG PO (09:07)
[2024-08-30] MEDS: NSS IV (09:15)
--- NOTE | 2024-08-30 10:01 | CM ---
Reviewed chart. Met with and Mrs. Merritt to review discharge plans. He states he is feeling okay. He states prior to admission he resides with his spouse in a one story home with one step to enter. He has a full flight of steps to get to the
basement game room. He states prior to admission he was independent with ambulation and adls. He has a CPAP Machine and walker at home. He has a prescription plan. His spouse states she will be home to assist in his care if needed. He states he
has three children who reside in the area and are supportive. We reviewed a home visit by the Transitional Care Nurse. He is agreeable to a home visit. Medical work-up in progress, The discharge plan is to return home with his spouse and a home
visit by the Transitional Care Nurse when medically stable.
[2024-08-30 10:41] LABS: Glucose - Point of Care 123 mg/dl (70-99)
--- NOTE | 2024-08-30 12:05 | PTCARENOTE ---
VS obtained, assessment stable. Patient remains oob, awaiting lunch. States pain controlled.
[2024-08-30 12:18] LABS: Glucose - Point of Care 112 mg/dl (70-99)
[2024-08-30] MEDS: LASIX 40 MG IV (12:51)
--- NOTE | 2024-08-30 13:42 | W.PN.INTV ---
Today's Communication / Plan
Recommendations
Doing well post extubation, stable on RA
Chest tubes remain
Pain control
PT/OT, ambulation, OOB encouraged
Transition insulin gtt to off
Transfer to the [facility], we will sign off upon transfer
Assessment
-
Patient is a 73-year-old male with previous history of mitral valve insufficiency, hypertension, LILIANA on CPAP, A-fib presenting for elective cardiac surgery. Patient has history of mitral disease resulting in severely enlarged left atrium due to
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 His EF is stable at 65% he also has, current moderately severe tricuspid cuspid valve disease. He does have
shortness of breath with exertion, with deteriorating clinical status in the past year. Underwent radical mitral valve repair, maze, permanent epicardial pacing wires on 08/29/2024 and tolerated procedure well. He is perioperatively mechanically
ventilated and admitted to CVICU for further management.
Severe mitral valve insufficiency secondary to type II pathology with flail segment and prolapse and flail (torn cords) of P2, symptomatic s/p Radical mitral valve repair, LA Maze, permanent epicardial pacing wires 08/29/24
Perioperative mechanical ventilation
CHEN
Mild postop anemia
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
LILIANA on CPAP, follows Dr Logan, mild based on HST from [facility]
PAP mean pressure 13cm water
Essential hypertension
Bradycardia
Status post total left knee replacement
Hyperlipidemia
Atrial fibrillation on Eliquis
History of arthroplasty of right knee
Ventricular premature depolarization
Supraventricular tachycardia
Chronic fatigue
Plan
S/p MVR POD #1
Titrating off pressors per protocol
ECHO reviewed with normal function
PA catheter readings reviewed
Management of chest tubes per primary service
Pain control
RASS goal of 0 to -1
Intubated for procedure, extubated and doing well
ABG(s) reviewed/adequate
CXR with stable postop changes
Maintain supplement oxygen as needed
Prior history of pulmonary disease: LILIANA on CPAP
Can resume PAP post extubation
No Prior PFTs for review, no known history of lung disease
Can add nebulizers if needed
Aspiration precautions
Encouraged incentive spirometry, OOB/ambulation/early mobility
Advance diet as tolerated following extubation
GI prophylaxis if indicated for mechanical ventilation >48 hours
Monitor critical I/O's
Cardoso/chest tube output
Hb/platelets postoperatively stable
Trend CBC for now
Can transfuse if indicated for Hb <7, plt <50 in surgical patients
DVT prophylaxis including SCDs
Insulin protocol initiated and transitioning to off per team
Diagnostic Data
Chest X-Ray: 08/29/24- Lungs: The lungs are clear considering the limited inspiration. No pleural effusion or pneumothorax.
CT Scan: AP 01/14/24- CHEST: The lung bases are clear. The heart is mildly enlarged.
Echo: RALPH 08/29/24- Overall LVEF is approximately 55% with no RWMA. Mild concentric left ventricular hypertrophy. Moderately dilated left atrium. Mildly dilated right atrium. Trace aortic insufficiency. Mild tricuspid regurgitation. Mild
pulmonic insufficiency. Severe mitral regurgitation. MR etiology is from P2 flail, and dilated MV annulus. Scattered mild atheroma seen in the distal aortic arch.
[facility] 08/08/24- HEMODYNAMICS : RA (m) : 7; RV (s/d,m) : 35/4, 8; PA (s/d, m) : 35/14, 23; PCWP (m) : 14
PA saturation: 76.1% on room air; AO saturation: 91.9% on room air; SVC saturation: 73.2% on room air
Cardiac Output : 7.18 L/min, Cardiac Index : 3.27 L/min/m-2, Systemic vascular resistance: 924 dsc^(-5), Pulmonary vascular resistance: 1.06 mattson unit
CONCLUSIONS- No obstructive coronary artery disease. Mildly elevated right and left-sided filling pressures with normal cardiac output.
PFT's:
Reports and relevant images were personally reviewed.
Critical Care time 31 mins -- The patient is admitted for acute critical illness for the treatment of vital organ failure and/or prevention of further life-threatening conditions. Total care includes time spent in review of history, physical exam,
medications, hemodynamic/ventilator parameters, laboratory data, imaging and discussion with house staff, pharmacy, respiratory therapy, automatic lathe operator, and nursing.
Subjective Dataa
Subjective Data
Date of Service:
Date of Service: August 30, 2024
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
Subjective:
Doing well post extubation, no events
Minimal pain
Objective Data
Data Reviewed
Vital Signs / I&O / Oxygen:
Vital Signs
Temp Pulse Resp BP Pulse Ox
98.1 F 62 15 130/73 94
08/30/24 12:03 08/30/24 12:51 08/30/24 12:03 08/30/24 12:51 08/30/24 12:03
Intake and Output
08/29/24 08/30/24 08/31/24
06:59 06:59 06:59
Intake Total 1471.9 / 1484.2 565.6 / 565.6
Output Total 1085 / 1085 220 / 220
Balance 386.9 / 399.2 345.6 / 345.6
SaO2 [CPAP] 99
SaO2 [SIMV] 99
SaO2 94
Nasal Cannula flow liters per 2
minute
Physical Exam
General: Comfortable and Other (NAD)
HEENT: Normocephalic, Anicteric and Moist Mucous Membranes
Cardiovascular: S1-S2 and Regular Rhythm
Respiratory: Clear, Non-Labored Respirations and Chest Tube
GI: Soft, Non Distended and Non Tender
Neurology: Awake, Alert, Oriented and No Motor Deficits
Skin: Warm, Dry and Good Color
Labs/Micro/Reports
Lab Data
08/30/24 02:52
08/30/24 02:52
Laboratory Results
08/29/24
16:59
pH 7.39
pCO2 44
pO2 163 H
HCO3 26.6
O2 Delivery Level
Microbiology
08/29/24 07:30 Urine Urine Culture - Final
NO GROWTH
--- NOTE | 2024-08-30 16:02 | W.PN.CARDCBS ---
Addendum entered and electronically signed by Terrence Phan MD 08/30/24 17:13:
Attending addendum: Patient seen and examined. PA note reviewed and findings confirmed by me. He is post op and feeling well.
-Encouraged incentive spirometer
-Permanent epicardial leads were placed given his history of bradycardia and tricuspid valve repair
-PAF chronically on oral anticoagulation: WHITLEY clip
Original Note:
Today's Communication / Plan
-
continue post op care
follow tele, holding amio/BB
resume OAC when ok per surgery
Impression / Plan
-
Primary Raw Mill Operator: Dr. Florentino Martines
Assessment:
Severe mitral valve insufficiency with flail/torn cords of P2 and prolapse, symptomatic status post radical mitral valve repair, simple tricuspid valve repair, MAZE and WHITLEY clip, placement of permanent epicardial pacing wires on the RV and RA 08/29/24
Sinus bradycardia
Paroxysmal atrial fibrillation
s/p CV 04/24/24
chronic OAC with eliquis
Hypertension
Hyperlipidemia
PVCs, 10% burden historically by holter 2023
LILIANA on CPAP
Obesity
ECHO 07/24/24: EF 50%, abnormal septal motion in setting of bigeminy, mild concentric LVH, dilated RV, severe eccentric MR with posterior leaflet prolapse, AAC, trivial AR, moderate TR, PAP 50 to 55 mmHg
RALPH 08/03/2024: EF 65%, severely dilated LA, mildly dilated RA, severe eccentric MR prolapse with torn cord located predominantly at P1/P2, mild AR, moderate to severe TR, systolic flow reversal in pulmonary veins
Plan:
-s/p radical mitral valve repair, simple tricuspid valve repair, MAZE and WHITLEY clip, placement of permanent epicardial pacing wires on the RV and RA 08/29/24
-in SR with occasional PVCs, 1 7-beat run of NSVT. had 10% PVC burden prior to admission by holter 2023
-hgb 11.6. will resume OAC post op when ok per CT surgery, was on eliquis preop
-EKG 08/30 with resolution of RBBB seen on initial post op EKG
-holding amio/BB due to relative bradycardia. He has not been on AV chaparrita blocking agents as an outpatient due to history of bradycardia
-Prior to admission was on Norvasc 2.5 mg twice daily, Lasix 20 mg p.o. daily, lisinopril 40 mg p.o. daily. Will resume postoperatively as blood pressure tolerates.
-continue post op care, OOB/IS
-d/w nursing. d/w patient and son at bedside
Progress Note - Raw Mill Operator
Subjective
Date of Service: August 30, 2024
doing ok. reports some discomfort with taking deep breaths
Objective
Labs:
08/30/24 02:52
08/30/24 02:52
Labs
Hgb 11.6 g/dL (13.0-18.0) L 08/30/24 02:52
Hct 32.5 % (39.0-52.0) L 08/30/24 02:52
Plt Count 186 10^3/uL (130-400) D 08/30/24 02:52
PT 17.7 Sec (11.4-14.6) H 08/29/24 12:06
INR 1.43 08/29/24 12:06
APTT 31.0 Sec (23.4-35.0) 08/29/24 12:06
Sodium 141 mmol/L (135-145) 08/30/24 02:52
Potassium 4.6 mmol/L (3.5-5.1) 08/30/24 02:52
BUN 29 mg/dl (9-20) H 08/30/24 02:52
Creatinine 0.8 mg/dL (0.7-1.3) 08/30/24 02:52
Glucose 95 mg/dl (70-99) 08/30/24 02:52
Vital Signs and I&O:
Vital Signs
Temp Pulse Resp BP Pulse Ox
98.1 F 66 15 145/82 94
08/30/24 12:03 08/30/24 14:30 08/30/24 12:03 08/30/24 13:52 08/30/24 12:03
Vital Signs
Temp Pulse Resp BP Pulse Ox
98.1 F 66 15 145/82 94
08/30/24 12:03 08/30/24 14:30 08/30/24 12:03 08/30/24 13:52 08/30/24 12:03
Intake & Output
08/28/24 08/29/24 08/30/24 08/31/24
07:59 07:59 07:59 07:59
Intake Total 1484.2 / 1746.5 573.3 / 573.3
Output Total 1085 / 1085 870 / 870
Balance 399.2 / 661.5 -296.7 / -296.7
Physical Exam
Physical Exam
GEN: No distress, awake, alert, oriented x3
HEENT: supple, anicteric, mmm, eomi
LUNGS: CTA B/L, no wheezes/rales
CV: Reg, S1/S2, no murmur
ABD: soft, BS+, NT/ND
EXT: No cyanosis, clubbing. trace edema of B/L LE
NEURO: Gross non-focal
SKIN: Warm, pink, dry. No rash. Sternotomy incision c/d/i. CTs in place
--- NOTE | 2024-08-30 16:20 | PTCARENOTE ---
VS obtained, stable. Assisted back oob to bathroom, voided spontaneously. Settled to chair, IS demonstrated. States pain remains controlled. Family at bedside. Perusing menu.
[2024-08-30] MEDS: LIPITOR 20 MG PO (17:49)
[2024-08-30] MEDS: ULTRAM 25 MG PO (19:56)
--- NOTE | 2024-08-30 20:15 | PTCARENOTE ---
Report received from BRANDAN Leger. Walking rounds done. Pt sitting in chair. Awake, alert, oriented x 4. Speech clear. Moves all extremities equally x 4. Assisted to BR to void. Pt also passing flatus. Pt then helped back to bed. Pt noted to be in
ventricular bigeminy while in BR. No c/o dizziness or lightheadedness. Normotensive when VS checked in bed. SHIKHA Ocampo notified. Labs drawn and sent to check K and Mg. Pt in SR with multifocal PVCs. Pt c/o 5/10 sternal pain. Tramadol 25 mg po given
for pain. Audible heart tones. Temporary AV epicardial wires insulated to chest. Mediastinal CTs x 2, to -20 cm suction. Draining SSG drainage. For pulse and wound assessments, see flowsheets. Pt room air sat 93%. 2L/NC applied when pt in bed. Sats
97%. BBS present. Decreased to B bases. CDB and IS encouraged. IS peak 1500 mls. Moist, productive cough for small, thick, clear sputum.Belly soft, nontender. Hypoactive bs x 4. Voids clear, elif urine. at bedside. Ongoing plan of care.
[2024-08-30 21:12] LABS: Magnesium 2.3 mg/dl (1.6-2.3)
--- NOTE | 2024-08-30 23:00 | PTCARENOTE ---
Addendum entered by Asim Valencia RN 08/31/24 02:28:
Pts own CPAP mask applied to hospital machine. 3L/NC/O2 attached to machine. Set up via RT. Sats 97%.
Original Note:
Pt given CHG bath. VS done. Scheduled meds given.
[2024-08-31] VITALS (14 sets, daily range): BP systolic 113–138; BP diastolic 58–78; PULSE 88; BMI 32.1
[2024-08-31] MEDS: ULTRAM 25 MG PO ×2 (01:32→22:42)
--- NOTE | 2024-08-31 01:35 | PTCARENOTE ---
Tramadol 25 mg for 4/10 sternal and posterior neck pain.Pt uncomfortable on hospital CPAP. Requests CPAP mask to be off. Removed and 2L/NC applied. Sats 96-97%. Pt going back to sleep. Continual pulse ox on pt.
--- NOTE | 2024-08-31 04:00 | PTCARENOTE ---
VS done. See flowsheet. No c/o pain.
--- NOTE | 2024-08-31 04:52 | W.PN.CT ---
Today's Communication / Plan
-
-No major issues overnight. Hemodynamically stable
-chest tube output: 2meds 65/205. Discontinue today
-Noted to be in NSR with PVC's. Start low dose BB
-Will eventually resume Eliquis for PAF/MAZE
-Cont. current meds (ASA, Lipitor, Protonix; Amiodarone and BB)
-Will transition to tele phase today once off insulin gtt
-Maintain cordis
-Discontinue temporary PW (will likely cut before d/c home)
-Maintain permanent epicardial pacing wires
-Encourage use of IS
-Wean off of O2 as tolerated
-OOB into chair/Ambulate
-Repeat echo
Assessment / Plan
-
Assessment:
-S/p Standard sternotomy/Radical mitral valve repair [closure of cleft between P1 and P2, and P2 and P3, Schoolcraft-Lopez cords placed to the posterior leaflet x 3, cleft closure between A2 and A3, 38 mm band annuloplasty]/Simple tricuspid valve repair [30
mm band annuloplasty]/Left atrial maze [combination of RF and cryo ablation]/ Left atrial appendage exclusion/Placement of permanent epicardial pacing wires on the RV and RA/ Placement of temporary atrial ventricular pacing wire, by Dr. Horton,
08/29/24, pod#2
-Severe mitral valve insufficiency secondary to type II pathology with flail segment and prolapse and flail (torn cords) of P2, symptomatic
-Bradycardia at baseline with heart rates in the 30s to 40s
-History of atrial fibrillation, paroxysmal S/p DCCV 04/24/24, on Eliquis
-Moderately severe tricuspid valve insufficiency
-Hypertension
-Hyperlipidemia
-PSVT with PVCs
-LILIANA on CPAP
-Class 1 obesity (BMI 31.5)
-Chronic fatigue
-Former tobacco use (quit 1970)
-Diverticulosis
-Arthritis
-S/p L TKA, 2018
-S/p R TKA
-S/P Inguinal herniorrhaphy
-S/P Umbilical herniorrhaphy
-S/p bilateral cataracts
-S/p Hemorrhoidectomy
-Acute postop blood loss/Anemia (stable without transfusion)
-Acute postop atelectasis/Left pleural effusion
-Acute postop hypovolemia with subsequent hypervolemia
-Acute postop new RBBB
Subjective
Procedure
S/p Standard sternotomy/Radical mitral valve repair [closure of cleft between P1 and P2, and P2 and P3, Schoolcraft-Lopez cords placed to the posterior leaflet x 3, cleft closure between A2 and A3, 38 mm band annuloplasty]/Simple tricuspid valve repair [30
mm band annuloplasty]/Left atrial maze [combination of RF and cryo ablation]/ Left atrial appendage exclusion/Placement of permanent epicardial pacing wires on the RV and RA/ Placement of temporary atrial ventricular pacing wire, by Dr. Horton, 08/29/24
-
Date of Service: August 31, 2024
Objective Data
-
Lab Results
08/31/24 05:39
08/31/24 05:39
PT 17.7 Sec (11.4-14.6) H 08/29/24 12:06
INR 1.43 08/29/24 12:06
APTT 31.0 Sec (23.4-35.0) 08/29/24 12:06
Vital Signs
Vital Signs
Temp Pulse Resp BP Pulse Ox
98.1 F 68 15 135/83 95
08/30/24 23:07 08/30/24 23:07 08/30/24 23:07 08/30/24 23:07 08/30/24 23:07
CT Intake/Output/Weight
08/30/24 08/30/24 08/31/24
06:59 18:59 06:59
Intake Total 442.4 / 1484.2 625.6 / 675.6 50 / 675.6
Output Total 635 / 1085 1265 / 1730 465 / 1730
Balance -192.6 / 399.2 -639.4 / -1054.4 -415 / -1054.4
SaO2: 95
Physical Exam
-
General: AOx3
Cardiovascular: Regular rate & rhythm
Respiratory: Decreased Breath Sounds
Sternum: Stable
Incision: Clean, Dry and Intact
Extremities: Edema +1
[2024-08-31] MEDS: TYLENOL 1000 MG PO ×3 (05:30→22:30)
[2024-08-31] MEDS: ANESTHETIC LOZENGE 1 LOZENGE PO (05:30)
--- NOTE | 2024-08-31 06:04 | PTCARENOTE ---
Labs drawn and sent. CXR done. Pt voided clear, elif urine in urinal, 300 mls. Pt weighed on standing scale and helped to recliner chair. Pt SB 54 bpm. Sats 93% on 2 L/NC.
[2024-08-31 06:10] LABS: Hematocrit 32.4 % (39.0-52.0); Hemoglobin 11.2 g/dL (13.0-18.0); Mean Corp Hgb Conc. 34.6 g/dL (33.0-37.0); Mean Corpuscular Hgb 33.8 pg (27.0-31.0); Mean Corpuscular Volume 97.9 fL (80.0-94.0); Mean Platelet Volume 8.8 fL (7.4-10.4); Platelet Count 174 10^3/uL (130-400); Red Blood Cell Count 3.31 10^6/uL (4.70-6.10); Red Cell Dist. Width 13.2 % (11.5-14.5); White Blood Cell Count 12.7 10^3/uL (4.8-10.8)
[2024-08-31 06:25] LABS: Blood Urea Nitrogen 26 mg/dl (9-20); Calcium 8.2 mg/dl (8.4-10.2); Carbon Dioxide 35 mmol/L (22-30); Chloride 102 mmol/L (98-107); Estimated Creatinine Clearance 109 ml/min; Glucose 113 mg/dl (70-99); Magnesium 2.2 mg/dl (1.6-2.3); Potassium 4.3 mmol/L (3.5-5.1); Sodium 137 mmol/L (135-145); eGFR > 60.00
[2024-08-31] MEDS: LIDOCAINE 4% PATCH 1 PATCH TOPICAL (07:49)
[2024-08-31] MEDS: LOW STRENGTH ASPIRIN 81 MG PO (07:50)
[2024-08-31] MEDS: SENOKOT-S 1 TABLET PO ×2 (07:50→20:21)
[2024-08-31] MEDS: BACTROBAN 2% OINTMENT 1 APPLIC NASAL ×2 (07:50→20:20)
[2024-08-31] MEDS: LASIX 40 MG IV (07:50)
[2024-08-31] MEDS: MAGNESIUM OXIDE 500 MG PO ×2 (07:50→20:21)
[2024-08-31] MEDS: NEURONTIN 100 MG PO ×3 (07:50→22:30)
[2024-08-31] MEDS: PROTONIX 40 MG PO (07:50)
--- NOTE | 2024-08-31 08:06 | W.PN.CARDCBS ---
Addendum entered and electronically signed by Dee Martines MD 08/31/24 10:05:
I saw and examined the patient.
The Clinical Trials Specialist's note was reviewed and I agree with the note.
Comment: Patient examined and remained stable postop. Chest tubes, Cordis and cardiac wires currently in place.
Telemetry stable with PVCs with some retrograde conduction. No significant arrhythmias.
Status post mitral valve repair, tricuspid valve repair, maze and left atrial appendage clip. Also epicardial permanent pacemaker wires placed intraoperatively for future use if needed.
Spoke with his at great length.
Spoke with nursing staff. Spoke with CT surgery CONTINUOUS MINER
Continue postop care.
Plan for echo tomorrow.
Resume oral anticoagulation when able.
Original Note:
Today's Communication / Plan
-
continue post op care
resume OP eliquis when ok per CT surgery
echo prior to DC
Impression / Plan
-
Primary Collection Agent: Dr. Florentino Martines
Assessment:
Severe mitral valve insufficiency with flail/torn cords of P2 and prolapse, symptomatic status post radical mitral valve repair, simple tricuspid valve repair, MAZE and WHITLEY clip, placement of permanent epicardial pacing wires on the RV and RA 08/29/24
Sinus bradycardia
Paroxysmal atrial fibrillation
s/p CV 04/24/24
chronic OAC with eliquis
Hypertension
Hyperlipidemia
PVCs, 10% burden historically by holter 2023
LILIANA on CPAP
Obesity
ECHO 07/24/24: EF 50%, abnormal septal motion in setting of bigeminy, mild concentric LVH, dilated RV, severe eccentric MR with posterior leaflet prolapse, AAC, trivial AR, moderate TR, PAP 50 to 55 mmHg
RALPH 08/03/2024: EF 65%, severely dilated LA, mildly dilated RA, severe eccentric MR prolapse with torn cord located predominantly at P1/P2, mild AR, moderate to severe TR, systolic flow reversal in pulmonary veins
Plan:
-s/p radical mitral valve repair, simple tricuspid valve repair, MAZE and WHITLEY clip, placement of permanent epicardial pacing wires on the RV and RA (due to bradycardia history and TV repair) 08/29/24
-remains in SR/SB with PVCs at times in pattern of bigeminy. had 10% PVC burden prior to admission by holter 2023
-holding BB/amio due to bradycardia. He has not been on AV chaparrita blocking agents as an outpatient due to history of bradycardia
-hgb 11.2 on 08/31. resume OP eliquis when ok per CT surgery
-wean supp O2 as able, OOB/IS encouraged
-check echo prior to DC
-Prior to admission was on Norvasc 2.5 mg twice daily, Lasix 20 mg p.o. daily, lisinopril 40 mg p.o. daily. Will resume postoperatively as blood pressure tolerates.
-d/w nursing. d/w patient and at bedside
Progress Note - Collection Agent
Subjective
Date of Service: August 31, 2024
reports pain adequately controlled. no palpitations
Objective
Labs:
08/31/24 05:39
08/31/24 05:39
Labs
Hgb 11.2 g/dL (13.0-18.0) L 08/31/24 05:39
Hct 32.4 % (39.0-52.0) L 08/31/24 05:39
Plt Count 174 10^3/uL (130-400) 08/31/24 05:39
PT 17.7 Sec (11.4-14.6) H 08/29/24 12:06
INR 1.43 08/29/24 12:06
APTT 31.0 Sec (23.4-35.0) 08/29/24 12:06
Sodium 137 mmol/L (135-145) 08/31/24 05:39
Potassium 4.3 mmol/L (3.5-5.1) 08/31/24 05:39
BUN 26 mg/dl (9-20) H 08/31/24 05:39
Creatinine 0.7 mg/dL (0.7-1.3) 08/31/24 05:39
Glucose 113 mg/dl (70-99) H 08/31/24 05:39
Vital Signs and I&O:
Vital Signs
Temp Pulse Resp BP Pulse Ox
98.1 F 58 18 138/68 93
08/31/24 08:00 08/31/24 08:00 08/31/24 08:00 08/31/24 04:00 08/31/24 08:00
Vital Signs
Temp Pulse Resp BP Pulse Ox
98.1 F 58 18 138/68 93
08/31/24 08:00 08/31/24 08:00 08/31/24 08:00 08/31/24 04:00 08/31/24 08:00
Intake & Output
08/29/24 08/30/24 08/31/24 09/01/24
07:59 07:59 07:59 07:59
Intake Total 1484.2 / 1746.5 733.3 / 753.3
Output Total 1085 / 1085 2069 / 2094
Balance 399.2 / 661.5 -1336.7 / -1341.7 -5 / -5
Physical Exam
Physical Exam
GEN: No distress, awake, alert, oriented x3. sitting in chair. on supp O2
HEENT: supple, anicteric, mmm, eomi
LUNGS: CTA B/L, no wheezes/rales
CV: Reg, S1/S2, no murmur
ABD: soft, BS+, NT/ND
EXT: No cyanosis, clubbing. trace edema of B/L LE
NEURO: Gross non-focal
SKIN: Warm, pink, dry. No rash. Sternotomy incision c/d/i. CTs in place
--- NOTE | 2024-08-31 08:09 | PTCARENOTE ---
Assumed care of patient at 0700. Pt is awake, alert, and oriented. No complaints of pain at this time. Pt remains SB with HR 55 BP 117/67 MAP 82. Epicardial AV wires insulated. Pulse oximetry 90-97% on room air. Encouraged pt to continue utilizing
IS, pt currently achieving 1500. Mediastinal chest tubes x2 in place, serosanguineous drainage, no sign of air leak or crepitus. Pt tolerating PO. Voiding in urinal. Midsternal incision approximated and BLAINE. Right chest incision approximated and
MAINTENANCE CUSTODIAN. Right IJ cordis in place with KVO. Pt currently OOB in chair awaiting breakfast, at bedside. Plan of care reviewed, questions addressed.
--- NOTE | 2024-08-31 11:52 | PTCARENOTE ---
AV wires pulled by CT TROLLEY COLLECTORSabina. Pt maintained on bedrest, monitored mediastinal chest tube output and BP x 1 hr. Pt without issue. Mediastinal chest tubes d/c'd. Echo being completed at bedside. Currently remains SB with HR 57. BP 123/66 MAP 82.
Pulse oximetry 92% on room air.
--- NOTE | 2024-08-31 12:52 | CM ---
Reviewed chart. Met with and Mrs. Merritt to review discharge plans. He states he is feeling well. We reviewed a home visit by the Transitional Care Nurse. He is agreeable to a home visit. Prior to admission he resides with his spouse in a
one story home with one step to enter. He has a full flight of steps to get to his game room in the basement. Prior to admission he was independent with ambulation and adls. He has a CPAP Machine and walker at home. He has a prescription plan.
His spouse will be home to assist in his care if needed. He also has three supportive children who reside in the area. Medical work-up in progress. The discharge plan is to return home with his spouse and a home visit by the Transitional Care Nurse
when medically stable.
[2024-08-31] MEDS: NSS IV (14:51)
--- NOTE | 2024-08-31 15:17 | PTCARENOTE ---
Pt ambulated in fong with RN assistance. Minimal complaints of pain at this time, refusing additional pain medications. Pt remains SR/SB with HR 50's-60's. BP 131/68 MAP 85. Pulse oximetry 95% on room air.
[2024-08-31] MEDS: LIPITOR 20 MG PO (16:52)
--- NOTE | 2024-08-31 20:30 | PTCARENOTE ---
Report received from BRANDAN Huntley. Pt assessed and VS done. Pt walked in fong, 1 assist. C/O mild CHEN, felt mildly 'woozy'. Denies dizziness, lightheadedness. BP on return from walk 135 systolic. Neuro intact. Oriented x 4, Speech clear, moves all
extremities equally x 4. Room air sat 92-94%. Pt with productive cough, clear-white, thick sputum. CDB and IS encouraged. IS peak 1500 mls. Audible heart tones. Pt in SR with PVCs, occasional ventricular bigeminy. For pulse and wound assessments,
see flowsheets. Belly soft, nontender. Passing flatus. Normoactive bs x 4. at bedside. Ongoing plan of care.
[2024-08-31] MEDS: MUCINEX 600 MG PO (22:42)
--- NOTE | 2024-08-31 23:00 | PTCARENOTE ---
Tramadol 25 mg po given at 2242 for 4/10 sternal pain and posterior neck pain. PA into see pt. Mucinex started and given per order. Pt voided 200 mls of clear, yellow urine. CHG bath given. Pt attempting to go to sleep. His own CPAP applied. Sats
94%.
[2024-09-01] VITALS (12 sets, daily range): BP systolic 123–150; BP diastolic 61–88; PULSE 59; O2SAT 97–100; BMI 32.3
--- NOTE | 2024-09-01 01:40 | PTCARENOTE ---
CPAP with 2L/O2 placed via RT. O2 increased to 4L/NC for sat 88%. Sat now 94-95%. Pt currently sleeping.
--- NOTE | 2024-09-01 04:00 | PTCARENOTE ---
VS done. Pt helped to standing to void in urinal. Pt weighed on standing scale. Pt then assisted back to bed. Labs drawn and sent. Pt placed his CPAP/4L/O2 on and going to sleep.
[2024-09-01 04:36] LABS: Hematocrit 31.6 % (39.0-52.0); Mean Corp Hgb Conc. 34.8 g/dL (33.0-37.0); Mean Corpuscular Hgb 34.5 pg (27.0-31.0); Mean Corpuscular Volume 99.1 fL (80.0-94.0); Mean Platelet Volume 8.9 fL (7.4-10.4); Platelet Count 156 10^3/uL (130-400); Red Blood Cell Count 3.19 10^6/uL (4.70-6.10); Red Cell Dist. Width 13.2 % (11.5-14.5); White Blood Cell Count 10.6 10^3/uL (4.8-10.8)
[2024-09-01 05:01] LABS: Blood Urea Nitrogen 25 mg/dl (9-20); Calcium 8.1 mg/dl (8.4-10.2); Carbon Dioxide 35 mmol/L (22-30); Chloride 100 mmol/L (98-107); Estimated Creatinine Clearance > 125 ml/min; Glucose 113 mg/dl (70-99); Magnesium 2.2 mg/dl (1.6-2.3); Sodium 136 mmol/L (135-145); eGFR > 60.00
[2024-09-01] MEDS: TYLENOL 1000 MG PO ×3 (06:04→21:28)
--- NOTE | 2024-09-01 07:00 | PTCARENOTE ---
report received from previous RN. pt OOB in chair, resting comfortably. at bedside. AAOX3. SR with pvcs on telemetry heart rate in 50s. pulses palpable. trace lower extremity edema. pt on room air, sat 94%. lung sounds diminished in bases. pt
using IS at bedside, 1500. active bowel sounds, pt reports no bowel movement yet. voiding in urinal/bathroom. surgical sites SPLITTING MACHINE TENDER. chest tubes sites with dressing CDI. Right IJ cordis infusing KVO. see worklist for full nursing assessment and
interventions.
--- NOTE | 2024-09-01 07:51 | W.PN.CT ---
Today's Communication / Plan
-
-pod #3
-no issues overnight
-Tm 100.3- did chest PT, IS upto 1800, started Mucinex
-diuresed with 40 iv Lasix on 08/31
-s/p Echo 08/31- stable, EF 55%
-plan is to start Eliquis today
-encourage IS, OOB, ambulate
Assessment / Plan
-
Assessment:
-S/p Standard sternotomy/Radical mitral valve repair [closure of cleft between P1 and P2, and P2 and P3, Hornbeak-Lopez cords placed to the posterior leaflet x 3, cleft closure between A2 and A3, 38 mm band annuloplasty]/Simple tricuspid valve repair [30
mm band annuloplasty]/Left atrial maze [combination of RF and cryo ablation]/ Left atrial appendage exclusion/Placement of permanent epicardial pacing wires on the RV and RA/ Placement of temporary atrial ventricular pacing wire, by Dr. Horton,
08/29/24, pod#3
-Severe mitral valve insufficiency secondary to type II pathology with flail segment and prolapse and flail (torn cords) of P2, symptomatic
-Bradycardia at baseline with heart rates in the 30s to 40s
-History of atrial fibrillation, paroxysmal S/p DCCV 04/24/24, on Eliquis
-Moderately severe tricuspid valve insufficiency
-Hypertension
-Hyperlipidemia
-PSVT with PVCs
-LILIANA on CPAP
-Class 1 obesity (BMI 31.5)
-Chronic fatigue
-Former tobacco use (quit 1971)
-Diverticulosis
-Arthritis
-S/p L TKA, 2018
-S/p R TKA
-S/P Inguinal herniorrhaphy
-S/P Umbilical herniorrhaphy
-S/p bilateral cataracts
-S/p Hemorrhoidectomy
-Acute postop blood loss/Anemia (stable without transfusion)
-Acute postop atelectasis/Left pleural effusion
-Acute postop hypovolemia with subsequent hypervolemia
-Acute postop new RBBB
Discussed patient care with: Nursing and Care Team
Subjective
Procedure
S/p Standard sternotomy/Radical mitral valve repair [closure of cleft between P1 and P2, and P2 and P3, Hornbeak-Lopez cords placed to the posterior leaflet x 3, cleft closure between A2 and A3, 38 mm band annuloplasty]/Simple tricuspid valve repair [30
mm band annuloplasty]/Left atrial maze [combination of RF and cryo ablation]/ Left atrial appendage exclusion/Placement of permanent epicardial pacing wires on the RV and RA/ Placement of temporary atrial ventricular pacing wire, by Dr. Horton, 08/29/24
-
Date of Service: September 01, 2024
Objective Data
-
Lab Results
09/01/24 04:13
09/01/24 04:13
PT 17.7 Sec (11.4-14.6) H 08/29/24 12:06
INR 1.43 08/29/24 12:06
APTT 31.0 Sec (23.4-35.0) 08/29/24 12:06
Vital Signs
Vital Signs
Temp Pulse Resp BP Pulse Ox
99 F 57 18 128/80 95
09/01/24 03:29 09/01/24 06:16 09/01/24 03:29 09/01/24 06:16 09/01/24 06:00
CT Intake/Output/Weight
08/31/24 09/01/24 09/01/24
18:59 06:59 18:59
Intake Total 20 / 440 420 / 440
Output Total 460 / 985 525 / 985
Balance -440 / -545 -105 / -545
SaO2: 95
Physical Exam
-
General: Awake and AOx3
Cardiovascular: Regular rate & rhythm, No Murmurs and No Rub
Respiratory: Decreased Breath Sounds
Sternum: Stable
Incision: Clean, Dry and Intact
Extremities: Edema +1
Abdomen: soft, nontender, nondistended
Data Reviewed
-
Lab Results: Results Reviewed
Medications: Active Meds Reviewed
Chest X-Ray: Report Reviewed and Image Reviewed
ECG: Report Reviewed and Image Reviewed
[2024-09-01] MEDS: SENOKOT-S 1 TABLET PO (08:21)
[2024-09-01] MEDS: LIDOCAINE 4% PATCH 1 PATCH TOPICAL (08:22)
[2024-09-01] MEDS: NEURONTIN 100 MG PO ×3 (08:22→21:28)
[2024-09-01] MEDS: ELIQUIS 5 MG PO ×2 (08:22→20:09)
[2024-09-01] MEDS: MUCINEX 600 MG PO ×2 (08:22→20:09)
[2024-09-01] MEDS: PROTONIX 40 MG PO (08:22)
[2024-09-01] MEDS: MAGNESIUM OXIDE 500 MG PO ×2 (08:22→20:09)
[2024-09-01] MEDS: LOW STRENGTH ASPIRIN 81 MG PO (08:22)
[2024-09-01] MEDS: BACTROBAN 2% OINTMENT 1 APPLIC NASAL ×2 (08:23→20:08)
--- NOTE | 2024-09-01 10:31 | W.PN.CARDCBS ---
Today's Communication / Plan
-
Postoperative care
Monitor on telemetry
Resume goal-directed medical therapy as tolerated with improving blood pressure
Impression / Plan
-
Primary Secy: Dr. Florentino Martines
Assessment:
Severe mitral valve insufficiency with flail/torn cords of P2 and prolapse, symptomatic status post radical mitral valve repair, simple tricuspid valve repair, MAZE and WHITLEY clip, placement of permanent epicardial pacing wires on the RV and RA 08/29/24
Sinus bradycardia
Paroxysmal atrial fibrillation
s/p CV 04/24/24
chronic OAC with eliquis
Hypertension
Hyperlipidemia
PVCs, 10% burden historically by holter 2023
LILIANA on CPAP
Obesity
ECHO 07/24/24: EF 50%, abnormal septal motion in setting of bigeminy, mild concentric LVH, dilated RV, severe eccentric MR with posterior leaflet prolapse, AAC, trivial AR, moderate TR, PAP 50 to 55 mmHg
RALPH 08/03/2024: EF 65%, severely dilated LA, mildly dilated RA, severe eccentric MR prolapse with torn cord located predominantly at P1/P2, mild AR, moderate to severe TR, systolic flow reversal in pulmonary veins
TTE 08/31/2024: EF 55%, status post mitral valve repair with 30 mm band, peak/mean 9/2 mmHg, no MR. Aortic valve status post triad 30 mm annuloplasty band peak/mean 5/2 mmHg, no AI. Trace TR PASP 23 mmHg.
Plan:
-s/p radical mitral valve repair, simple tricuspid valve repair, MAZE and WHITLEY clip, placement of permanent epicardial pacing wires on the RV and RA (due to bradycardia history and TV repair) 08/29/24
-remains in SR/SB with PVCs at times in pattern of bigeminy. had 10% PVC burden prior to admission by holter 2023
-holding BB/amio due to bradycardia. He has not been on AV chaparrita blocking agents as an outpatient due to history of bradycardia; no recurrent atrial arrhythmia on telemetry
-Hbg stable; Eliquis resumed by CTSx
-wean supp O2 as able, OOB/IS encouraged
-Prior to admission was on Norvasc 2.5 mg twice daily, Lasix 20 mg p.o. daily, lisinopril 40 mg p.o. daily. Will resume postoperatively as blood pressure tolerates; currently off medical therapy
-d/w nursing. d/w patient and at bedside
Progress Note - Secy
Subjective
Date of Service: September 01, 2024
Patient seen and examined's morning. No acute events overnight. Patient resting comfortably in chair. Patient notes mild incisional chest discomfort. Patient denies any lightheadedness, dizziness, near-syncope, syncope, or weakness. Denies any
shortness of breath. Telemetry demonstrates sinus bradycardia, PVC, brief NSVT.
Objective
Labs:
09/01/24 04:13
09/01/24 04:13
Labs
Hgb 11.0 g/dL (13.0-18.0) L 09/01/24 04:13
Hct 31.6 % (39.0-52.0) L 09/01/24 04:13
Plt Count 156 10^3/uL (130-400) 09/01/24 04:13
PT 17.7 Sec (11.4-14.6) H 08/29/24 12:06
INR 1.43 08/29/24 12:06
APTT 31.0 Sec (23.4-35.0) 08/29/24 12:06
Sodium 136 mmol/L (135-145) 09/01/24 04:13
Potassium 4.0 mmol/L (3.5-5.1) 09/01/24 04:13
BUN 25 mg/dl (9-20) H 09/01/24 04:13
Creatinine 0.6 mg/dL (0.7-1.3) L 09/01/24 04:13
Glucose 113 mg/dl (70-99) H 09/01/24 04:13
Vital Signs and I&O:
Vital Signs
Temp Pulse Resp BP Pulse Ox
98.4 F 55 16 123/74 94
09/01/24 08:00 09/01/24 08:20 09/01/24 08:00 09/01/24 08:20 09/01/24 08:20
Vital Signs
Temp Pulse Resp BP Pulse Ox
98.4 F 55 16 123/74 94
09/01/24 08:00 09/01/24 08:20 09/01/24 08:00 09/01/24 08:20 09/01/24 08:20
Intake & Output
08/30/24 08/31/24 09/01/24 09/02/24
06:59 06:59 06:59 06:59
Intake Total 1471.9 / 1484.2 745.6 / 745.6 440 / 440 480 / 480
Output Total 1085 / 1085 2070 / 2070 985 / 985
Balance 386.9 / 399.2 -1324.4 / -1324.4 -545 / -545 480 / 480
Physical Exam
Physical Exam
GEN: No distress, awake, alert, oriented x3. sitting in chair
HEENT: supple, anicteric, mmm, eomi
LUNGS: CTA B/L, no wheezes/rales
CV: Reg, S1/S2, no murmur
ABD: soft, BS+, NT/ND
EXT: No cyanosis, clubbing. trace edema of B/L LE
NEURO: Gross non-focal
SKIN: Warm, pink, dry. No rash. Sternotomy incision c/d/i.
[2024-09-01] MEDS: NSS IV (10:49)
--- NOTE | 2024-09-01 12:00 | PTCARENOTE ---
pt resting comfortably, states that pain is well controlled at this time. no changes in assessment noted.
--- NOTE | 2024-09-01 13:21 | CM ---
Reviewed ramónrt. Met with and Mrs. Merritt to review discharge plans. He states he is feeling well and maybe able to go home soon. He states he ambulated in the hallway today. He states he gets his Eliquis from the [facility] and he has zero
co-pay. We reviewed a home viisit by the Transitional Care Nurse. He is agreeable to a home visit. Prior to admission he resides with his spouse in a one story home with one step to enter. He has a full flight of steps to get to his game room in
the basement. Prior to admission he was independent with ambulation and adls. He has a CPAP Machine and walker at home. He has a prescription plan. His spouse will be home to assist in this care if needed. He has three children that reside in
the are that are supportive. Medical work-up in progress. The discharge plan is to return home with his spouse and a home visit by the Transitional Care Nurse when medically stable.
--- NOTE | 2024-09-01 16:00 | PTCARENOTE ---
vitals stable. pt ambulated in hallway without difficulty. no changes in assessment noted.
[2024-09-01] MEDS: LIPITOR 20 MG PO (17:38)
--- NOTE | 2024-09-01 19:30 | PTCARENOTE ---
Received pt from [facility]. Walking rounds completed. Pt assessment completed in bed. Pt is AAOx4. no neuro deficits noted. SR with PVC's and ventricular bigeminy on monitor. Pulses palpable, bilateral lower extremity trace edema. Lungs clear,
diminished in bases. I/S 1500. POX 95% RA. Pt voiding yellow urine in bathroom. NBS, abdomen, soft, round, nontender. 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 C/T dressings C/D/I. 18g R PVA intact, no redness or edema noted.
Discussed plan of care with pt. Pt agrees with plan. Will continue to monitor pt needs.
[2024-09-01] MEDS: SENOKOT-S PO (20:15)
--- NOTE | 2024-09-01 23:07 | PTCARENOTE ---
VSS. Pt in NSR with PVC and PVC bigeminy on monitor. HR 65, B/P 144/88. PM care provided. Pt resting in bed. Will continue to monitor pt needs
[2024-09-02] MEDS: MELATONIN 5 MG PO (01:58)
[2024-09-02 02:02] VITALS: BMI 32.3
[2024-09-02 04:33] LABS: Hematocrit 30.8 % (39.0-52.0); Hemoglobin 10.9 g/dL (13.0-18.0); Mean Corp Hgb Conc. 35.4 g/dL (33.0-37.0); Mean Corpuscular Hgb 34.5 pg (27.0-31.0); Mean Corpuscular Volume 97.5 fL (80.0-94.0); Platelet Count 179 10^3/uL (130-400); Red Blood Cell Count 3.16 10^6/uL (4.70-6.10); Red Cell Dist. Width 12.9 % (11.5-14.5); White Blood Cell Count 9.9 10^3/uL (4.8-10.8)
[2024-09-02 04:58] LABS: Blood Urea Nitrogen 15 mg/dl (9-20); Calcium 8.2 mg/dl (8.4-10.2); Carbon Dioxide 35 mmol/L (22-30); Chloride 99 mmol/L (98-107); Estimated Creatinine Clearance > 125 ml/min; Glucose 105 mg/dl (70-99); Magnesium 2.2 mg/dl (1.6-2.3); Potassium 4.2 mmol/L (3.5-5.1); Sodium 137 mmol/L (135-145); eGFR > 60.00
--- NOTE | 2024-09-02 05:37 | PTCARENOTE ---
VSS. Pt sinus orin on monitor. HR 55, B/P 144/88. POX 98% 2L NC. Morning labs obtained and sent. Weight obtained. Pt resting in bed. Will continue to monitor pt needs.
[2024-09-02] MEDS: TYLENOL 1000 MG PO (06:02)
[2024-09-02 06:14] VITALS: BP 131/78
--- NOTE | 2024-09-02 07:51 | W.PN.CT ---
Addendum entered and electronically signed by Bonilla Kaur MD 09/02/24 09:23:
I saw and examined the patient.
The PA's note was reviewed and I agree with the note.
Comment:
POD#4 s/p MVRp, TVRp, ELAA, MAZE, epicardial wires
Doing well.
Continue Eliquis
D/C home today
Original Note:
Today's Communication / Plan
-
-pod #4
-no issues overnight, ambulates in hallways
-weaned off O2 - 96% on RA
-labs stable
-follow 2v-CXR
-encourage IS, OOB
-possible d/c today
Assessment / Plan
-
Assessment:
-S/p Standard sternotomy/Radical mitral valve repair [closure of cleft between P1 and P2, and P2 and P3, Kouts-Lopez cords placed to the posterior leaflet x 3, cleft closure between A2 and A3, 38 mm band annuloplasty]/Simple tricuspid valve repair [30
mm band annuloplasty]/Left atrial maze [combination of RF and cryo ablation]/ Left atrial appendage exclusion/Placement of permanent epicardial pacing wires on the RV and RA/ Placement of temporary atrial ventricular pacing wire, by Dr. Horton,
08/29/24, pod#4
-Severe mitral valve insufficiency secondary to type II pathology with flail segment and prolapse and flail (torn cords) of P2, symptomatic
-Bradycardia at baseline with heart rates in the 30s to 40s
-History of atrial fibrillation, paroxysmal S/p DCCV 04/24/24, on Eliquis
-Moderately severe tricuspid valve insufficiency
-Hypertension
-Hyperlipidemia
-PSVT with PVCs
-LILIANA on CPAP
-Class 1 obesity (BMI 31.5)
-Chronic fatigue
-Former tobacco use (quit 1970)
-Diverticulosis
-Arthritis
-S/p L TKA, 2018
-S/p R TKA
-S/P Inguinal herniorrhaphy
-S/P Umbilical herniorrhaphy
-S/p bilateral cataracts
-S/p Hemorrhoidectomy
-Acute postop blood loss/Anemia (stable without transfusion)
-Acute postop atelectasis/Left pleural effusion
-Acute postop hypovolemia with subsequent hypervolemia
-Acute postop new RBBB
Discussed patient care with: Nursing and Care Team
Subjective
Procedure
S/p Standard sternotomy/Radical mitral valve repair [closure of cleft between P1 and P2, and P2 and P3, Kouts-Lopez cords placed to the posterior leaflet x 3, cleft closure between A2 and A3, 38 mm band annuloplasty]/Simple tricuspid valve repair [30
mm band annuloplasty]/Left atrial maze [combination of RF and cryo ablation]/ Left atrial appendage exclusion/Placement of permanent epicardial pacing wires on the RV and RA/ Placement of temporary atrial ventricular pacing wire, by Dr. Horton, 08/29/24
-
Date of Service: September 02, 2024
Objective Data
-
Lab Results
09/02/24 04:25
09/02/24 04:25
PT 17.7 Sec (11.4-14.6) H 08/29/24 12:06
INR 1.43 08/29/24 12:06
APTT 31.0 Sec (23.4-35.0) 08/29/24 12:06
Vital Signs
Vital Signs
Temp Pulse Resp BP Pulse Ox
98.5 F 62 18 131/78 96
09/02/24 04:15 09/02/24 06:14 09/02/24 04:15 09/02/24 06:14 09/02/24 04:15
CT Intake/Output/Weight
09/01/24 09/02/24 09/02/24
18:59 06:59 18:59
Intake Total 960 / 960
Output Total 500 / 500
Balance 960 / 460 -500 / 460
SaO2: 96
Physical Exam
-
General: Awake and AOx3
Cardiovascular: Regular rate & rhythm, No Murmurs and No Rub
Respiratory: Decreased Breath Sounds
Sternum: Stable
Incision: Clean, Dry and Intact
Abdomen: soft, nontender, nondistended
Extremities: Edema +1
Data Reviewed
-
Lab Results: Results Reviewed
Medications: Active Meds Reviewed
Chest X-Ray: Report Reviewed and Image Reviewed
ECG: Report Reviewed and Image Reviewed
--- NOTE | 2024-09-02 08:00 | PTCARENOTE ---
Received pt from previous shift RN. Walking rounds completed. OOB in chair at time of assessment. AAOx3. SR with PVC's on monitor. Pulses palpable, trace edema. 96% RA. Lungs diminished in bases. I/S 1500. +bs. BRP. all surgical sites c/d/i. R PIV
patent. Will continue to monitor pt.
[2024-09-02 08:26] VITALS: BP 124/77
[2024-09-02] MEDS: BACTROBAN 2% OINTMENT 1 APPLIC NASAL (08:50)
[2024-09-02] MEDS: MAGNESIUM OXIDE 500 MG PO (08:51)
[2024-09-02] MEDS: MUCINEX 600 MG PO (08:51)
[2024-09-02] MEDS: PROTONIX 40 MG PO (08:51)
[2024-09-02] MEDS: NEURONTIN 100 MG PO (08:51)
[2024-09-02] MEDS: ELIQUIS 5 MG PO (08:51)
[2024-09-02] MEDS: LOW STRENGTH ASPIRIN 81 MG PO (08:51)
[2024-09-02] MEDS: SENOKOT-S 1 TABLET PO (08:51)
[2024-09-02] MEDS: NSS IV (08:52)
[2024-09-02 11:06] VITALS: BP 125/69
[2024-09-02 11:17] VITALS: BP 148/79
--- NOTE | 2024-09-02 11:44 | W.PN.CARDCBS ---
Addendum entered and electronically signed by Clarence Alfaro, DO 09/02/24 11:56:
Addendum:
Patient started on lisinopril 5 mg daily today 09/02/2024 and has yet received first dose. With this in mind, we will plan to not increase lisinopril to 10 mg due to stable blood pressures
Patient to follow-up outpatient for additional up titration of medical therapy; instructed patient to monitor at home
Postoperative care per CT surgery
Original Note:
Today's Communication / Plan
-
Increase lisinopril to 10 mg daily
Monitor on telemetry
Postoperative care per CT surgery
Impression / Plan
-
Primary Bindery Machine Feeder Offbearer: Dr. Florentino Martines
Assessment:
Severe mitral valve insufficiency with flail/torn cords of P2 and prolapse, symptomatic status post radical mitral valve repair, simple tricuspid valve repair, MAZE and WHITLEY clip, placement of permanent epicardial pacing wires on the RV and RA 08/29/24
Sinus bradycardia
Paroxysmal atrial fibrillation
s/p CV 04/24/24
chronic OAC with eliquis
Hypertension
Hyperlipidemia
PVCs, 10% burden historically by holter 2023
LILIANA on CPAP
Obesity
ECHO 07/24/24: EF 50%, abnormal septal motion in setting of bigeminy, mild concentric LVH, dilated RV, severe eccentric MR with posterior leaflet prolapse, AAC, trivial AR, moderate TR, PAP 50 to 55 mmHg
RALPH 08/03/2024: EF 65%, severely dilated LA, mildly dilated RA, severe eccentric MR prolapse with torn cord located predominantly at P1/P2, mild AR, moderate to severe TR, systolic flow reversal in pulmonary veins
TTE 08/31/2024: EF 55%, status post mitral valve repair with 30 mm band, peak/mean 9/2 mmHg, no MR. Aortic valve status post triad 30 mm annuloplasty band peak/mean 5/2 mmHg, no AI. Trace TR PASP 23 mmHg.
Plan:
-s/p radical mitral valve repair, simple tricuspid valve repair, MAZE and WHITLEY clip, placement of permanent epicardial pacing wires on the RV and RA (due to bradycardia history and TV repair) 08/29/24
-remains in SR/SB with PVCs at times in pattern of bigeminy. had 10% PVC burden prior to admission by holter 2023
-holding BB/amio due to bradycardia. He has not been on AV chaparrita blocking agents as an outpatient due to history of bradycardia; no recurrent atrial arrhythmia on telemetry continue to hold, reassess as outpatient
-Hbg stable; Eliquis resumed by CTSx, hemoglobin stable
-OOB/IS encouraged
-Prior to admission was on Norvasc 2.5 mg twice daily, Lasix 20 mg p.o. daily, lisinopril 40 mg p.o. daily. Due to low blood pressures, slow reintroduction of medical therapy. Patient on 5 mg lisinopril, mild increase in blood pressure today.
Will increase to 10 mg daily, reassess additional medical therapy as outpatient
-d/w nursing. d/w patient and at bedside
Progress Note - Bindery Machine Feeder Offbearer
Subjective
Date of Service: September 02, 2024
Patient seen and examined. No acute events overnight. Patient resting comfortably in bed. Patient denies any chest pain, shortness of breath, palpitations, or weakness. Notes mild incisional pain.
Objective
Labs:
09/02/24 04:25
09/02/24 04:25
Labs
Hgb 10.9 g/dL (13.0-18.0) L 09/02/24 04:25
Hct 30.8 % (39.0-52.0) L 09/02/24 04:25
Plt Count 179 10^3/uL (130-400) 09/02/24 04:25
PT 17.7 Sec (11.4-14.6) H 08/29/24 12:06
INR 1.43 08/29/24 12:06
APTT 31.0 Sec (23.4-35.0) 08/29/24 12:06
Sodium 137 mmol/L (135-145) 09/02/24 04:25
Potassium 4.2 mmol/L (3.5-5.1) 09/02/24 04:25
BUN 15 mg/dl (9-20) 09/02/24 04:25
Creatinine 0.6 mg/dL (0.7-1.3) L 09/02/24 04:25
Glucose 105 mg/dl (70-99) H 09/02/24 04:25
Vital Signs and I&O:
Vital Signs
Temp Pulse Resp BP Pulse Ox
98 F 61 18 148/79 97
09/02/24 08:00 09/02/24 11:30 09/02/24 08:00 09/02/24 11:17 09/02/24 11:17
Vital Signs
Temp Pulse Resp BP Pulse Ox
98 F 61 18 148/79 97
09/02/24 08:00 09/02/24 11:30 09/02/24 08:00 09/02/24 11:17 09/02/24 11:17
Intake & Output
08/31/24 09/01/24 09/02/24 09/03/24
06:59 06:59 06:59 06:59
Intake Total 745.6 / 745.6 440 / 440 960 / 960
Output Total 2069 / 2069 985 / 985 500 / 500 400 / 400
Balance -1324.4 / -1324.4 -545 / -545 460 / 460 -400 / -400
Physical Exam
Physical Exam
GEN: No distress, awake, alert, oriented x3. sitting in chair
HEENT: supple, anicteric, mmm, eomi
LUNGS: CTA B/L, no wheezes/rales
CV: Reg, S1/S2, no murmur
ABD: soft, BS+, NT/ND
EXT: No cyanosis, clubbing. trace edema of B/L LE
NEURO: Gross non-focal
SKIN: Warm, pink, dry. No rash. Sternotomy incision c/d/i.
[2024-09-02] MEDS: LIDOCAINE 4% PATCH TOPICAL (11:56)
--- NOTE | 2024-09-02 12:00 | PTCARENOTE ---
gone over all d/c instructions with patient and . questions answered. left with all belongings. scripts and med lists. taken out via wheelchair.
[2024-09-02] MEDS: ZESTRIL 5 MG PO (12:08)
[2024-09-02 12:41] VITALS: BP 125/66; BP 148/79; PULSE 58; O2SAT 97
--- NOTE | 2024-09-02 12:41 | W.DCSUMMARY ---
Discharge Summary
Discharge Data
Date of Admission: 08/29/24
Date of Discharge: 09/02/24
-
Pending Results: No
Hospital Course
Primary care physician: Tra Farnsworth
Outpatient steam table associate: Florentino Martines
Inpatient consultants: Cardiology- [facility]
Procedures:
1. 08/29/2024 radical mitral valve repair with #38 physio flex ring, tricuspid valve repair with #30 band, cryo/radiofrequency maze, exclusion left atrial appendage with a #35 atrial clip, and placement of permanent epicardial pacing wires on the RV
and RA by Dr. Bertin Horton
Primary Diagnosis:
1. Severe mitral regurgitation, type II pathology
2. Moderate to severe tricuspid regurgitation
3. History of paroxysmal atrial fibrillation status post DCCV April 2024, on Eliquis
Secondary Diagnoses:
1. Hypertension
2. Hyperlipidemia
3. PSVT with PVCs
4. Obstructive sleep apnea with CPAP
5. Class I obesity with BMI of 31
6. Former tobacco use
7. Osteoarthritis status post left and right total knee arthroplasties
8. Acute postop blood loss anemia, stable without transfusion
9. Postoperative new right bundle branch block
10. Sinus bradycardia
HPI: Patient is a 73-year-old male with severe mitral regurgitation and complaints of worsening dyspnea on exertion over the past year. 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
with posterior leaflet prolapse. He also has a he also has a history of paroxysmal atrial fibrillation for which he underwent a DCCV in 2023. Patient was referred to Dr. Horton for mitral valve repair evaluation. Additionally patient has moderate
to severe tricuspid regurgitation. After all preoperative workup was completed he was deemed a suitable candidate for the procedure.
Hospital course: Patient was brought in electively on 08/29/2024 where he underwent an uncomplicated radical mitral valve repair with a #38 physio flex ring, tricuspid valve repair, cryo/RF maze, exclusion of left atrial appendage with a #35 atrial
clip as well as placement of permanent epicardial pacing wires on the right atrium and right ventricle by Dr. Bertin Horton. He was transferred to CVICU per protocol on Cardene at 2. Postop EKG demonstrates sinus rhythm with right bundle branch
block, he was extubated later that evening at approximately 5:15 PM. On postop day 1 patient remained hemodynamically stable overnight he is sinus bradycardia cardiac, beta-lani is held. He started on gentle diuresis with IV Lasix. He is
satting 95% on room air. On postop day 2 temporary pacing wires were discontinued as well as his chest tubes. He is continued on IV Lasix with good sats on room air. Repeat transthoracic echo demonstrates EF of 55% with no MR and trace TR. On
postop day 3 he remains sinus orin, ambulating with minimal assistance. Right IJ Cordis discontinued without incident. Eliquis resumed for paroxysmal A-fib. On postop day 4 he remains hemodynamically stable, lisinopril resumed and can be
titrated as an outpatient as his blood pressure allows. Two-view chest x-ray is stable with no significant findings. Patient is discharged to home in the care of his family with close follow-up with the transitional care nurse and [facility] who will see him in a few days.
Home medication changes: Home Norvasc has been held due to relative hypotension, lisinopril has been decreased from 40 mg daily to 5 mg daily at this time due to relative hypotension. Both of which can be titrated as his blood pressure allows. New
prescriptions for gabapentin and tramadol as needed postsurgical pain
Discharge Plan
-
Patient Disposition: Home (Routine Discharge)
Discharge Diagnosis/Procedures: Mitral valve repair, tricuspid valve repair, maze, left atrial appendage clip
Condition: Good
Diet: Low Cholesterol and 2 Gram Sodium
Activity: No strenuous activity
Driving Restrictions: Not until seen by your Dr
Bathing Restrictions: OK to Shower
Other Services: Cardiac Rehab
Specialty Instructions: Weigh Daily- Call MD for wt gain/loss 3 lbs overnight/5 lbs in 1 week
Referrals:
CT Transitional Care Nurse [Outside] - in one to two days
(
The Cardiothoracic Transitional Care Nurse will call you to set up a visit in 1-2 days.)
[facility]. Cardiac Rehab [Outside] - 10/11/24 1:00 pm
(Cardiac Rehab Orientation appointment � and� First Exercise appointment is on October 11 pm.
The Cardiac Rehab gym is located on the first floor of the [facility].)
Tra Farnsworth MD [Family Provider] - in four to six weeks (Please make an appointment in four to six weeks. )
Tiana Hurd PA-C [Specified Professional Personl] - 10/13/24 12:40 pm
Bertin Horton MD [Active] - 09/25/24 2:45 pm
Prescriptions:
New
aspirin 81 mg Tablet,Chewable
81 mg PO DAILY Qty: 0 0RF
gabapentin 100 mg Capsule
100 mg PO TID PRN (Reason: surgical pain) Qty: 24 0RF
tramadol 50 mg Tablet
25 mg PO Q6HPRN PRN (Reason: mild pain) Qty: 20 0RF
lisinopril 5 mg Tablet
5 mg PO DAILY Qty: 30 0RF
Continued
ascorbic acid (vitamin C) [Vitamin C] 500 MG tablet
500 mg PO DAILY
Eliquis 5 mg Tablet
5 mg PO BID
furosemide 20 mg Tablet
20 mg PO DAILY
acetaminophen [Tylenol] 325 mg Tablet
325 mg PO Q6H PRN (Reason: mild pain)
melatonin 3 mg Tablet
3 mg PO HS PRN (Reason: insomnia)
atorvastatin 20 mg tablet
20 mg PO QPM Qty: 30 3RF
Discontinued
lisinopril 40 mg Tablet
40 mg PO DAILY
Methylprednisone 4 mg
4 mg PO ONCE
Patient Comments:
4mg once
Rx Instructions:
4mg
azithromycin
250 mg PO Daily
amlodipine 2.5 mg tablet
2.5 mg PO BID
Discharge Orders:
Discharge Patient (As Directed); Ordered 09/02/24
Ordered By: Mimi Viera
Care Plan Goals
Care Plan Goals:
Problem: Readiness for enhanced knowledge related to diagnosis and treatment plan
Goal: Understand your diagnosis and treatment plan needs, including medications if applicable.
Instructions: Know your diagnosis, underlying causes and treatment plan options, including medications if applicable. Consult with your health care team to learn about your diagnosis and treatment plan, including medications if applicable.
Discharge Date and Time
Print Language: UPPER SORBIAN
--- NOTE | 2024-09-02 13:58 | W.[place]-PDMP ---
[place]PD[place]
-
Checked the [place]- [employer] Monitoring [place] website, no red flags identified; safe to proceed with prescription.
--- NOTE | 2024-09-04 10:16 | W.PN.UPDATE ---
Update Note
Progress Note Update
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
== END 2024-09-02 12:00 | disposition home or self-care (01) | DRG 219 ==
LOC: CVICU 05:06
PROVIDERS: Anesthesiology; Physician Assistant; ADMITTING PHYSICIAN Thoracic Surgery (Cardiothoracic Vascular Surgery); FAMILY PHYSICIAN Family Medicine; OTHER PHYSICIAN Internal Medicine
PROC: 5A1221Z Performance of Cardiac Output, Continuous (ICD-10-PCS; 2024-08-29)
PROC: 02580ZZ Destruction of Conduction Mechanism, Open Approach (ICD-10-PCS; 2024-08-29)
PROC: 02UJ0JZ Supplement Tricuspid Valve with Synthetic Substitute, Open Approach (ICD-10-PCS; 2024-08-29)
PROC: B24BZZ4 Ultrasonography of Heart with Aorta, Transesophageal (ICD-10-PCS; 2024-08-29)
PROC: 02L70CK Occlusion of Left Atrial Appendage with Extraluminal Device, Open Approach (ICD-10-PCS; 2024-08-29)
PROC: 02UG0JZ Supplement Mitral Valve with Synthetic Substitute, Open Approach (ICD-10-PCS; 2024-08-29)
DX: I34.1 Nonrheumatic mitral (valve) prolapse (principal); I51.1 Rupture of chordae tendineae, not elsewhere classified; D62 Acute posthemorrhagic anemia; I47.10 Supraventricular tachycardia, unspecified; J98.11 Atelectasis; J90 Pleural effusion, not elsewhere classified; I36.1 Nonrheumatic tricuspid (valve) insufficiency; I48.0 Paroxysmal atrial fibrillation; R00.1 Bradycardia, unspecified; I10 Essential (primary) hypertension; E66.811 Obesity, class 1; E78.5 Hyperlipidemia, unspecified; I45.10 Unspecified right bundle-branch block; I49.3 Ventricular premature depolarization; I95.9 Hypotension, unspecified; R53.82 Chronic fatigue, unspecified; E87.70 Fluid overload, unspecified; E86.1 Hypovolemia; G47.33 Obstructive sleep apnea (adult) (pediatric); E66.01 Morbid (severe) obesity due to excess calories; Z68.32 Body mass index [BMI] 32.0-32.9, adult; Z79.01 Long term (current) use of anticoagulants; Z79.82 Long term (current) use of aspirin; Z79.899 Other long term (current) drug therapy; Z87.891 Personal history of nicotine dependence
CPT/HCPCS: 93308; 36415; 71045; 71046; 80048; 80053; 81003; 81015; 82248; 82330; 82565; 82805; 82947; 82962; 83036; 83735; 84132; 84302; 84520; 85014; 85018; 85025; 85027; 85049; 85610; 85730; 86850; 86900; 86901; 86920; 87070; 87086; 93005; 93312; 93320; 93321; 93325; 93880; 94002; 94660; J2916

== ENCOUNTER 2024-11-08 11:33 | Outpatient (RCR) | payer OTHER, SELFPAY ==
[2024-10-13 12:02] LABS: HDL Cholesterol 49 mg/dl; LDL Cholesterol, Calculated 87 mg/dl; Total Cholesterol 160 mg/dl (50-199); Triglyceride 120 mg/dl (10-149); Very Low Density Lipoprotein 24 mg/dl (0-30)
== END 2024-11-08 23:59 | disposition home or self-care (01) ==
LOC: CRHB 11:33
PROVIDERS: ATTENDING PHYSICIAN Internal Medicine Cardiovascular Disease; FAMILY PHYSICIAN Family Medicine
DX: Z95.4 Presence of other heart-valve replacement (principal)
CPT/HCPCS: 36415; 80061; G0422; G0423

== ENCOUNTER 2024-12-08 11:56 | Outpatient (RCR) | payer OTHER, SELFPAY | END 2024-12-08 23:59 | disposition home or self-care (01) | LOC: CRHB 11:56 | PROVIDERS: ATTENDING PHYSICIAN Internal Medicine Cardiovascular Disease; FAMILY PHYSICIAN Family Medicine | DX: Z95.4 Presence of other heart-valve replacement (principal); I25.10 Atherosclerotic heart disease of native coronary artery without angina pectoris (principal) | CPT/HCPCS: G0422; G0423 ==

== ENCOUNTER 2025-01-08 11:55 | Outpatient (RCR) | payer OTHER, SELFPAY | END 2025-01-08 23:59 | disposition home or self-care (01) | LOC: CRHB 11:55 | PROVIDERS: ATTENDING PHYSICIAN Internal Medicine Cardiovascular Disease; FAMILY PHYSICIAN Family Medicine | DX: I34.1 Nonrheumatic mitral (valve) prolapse (principal); Z95.4 Presence of other heart-valve replacement; I25.10 Atherosclerotic heart disease of native coronary artery without angina pectoris; I10 Essential (primary) hypertension; E78.5 Hyperlipidemia, unspecified | CPT/HCPCS: G0422; G0423 ==

== ENCOUNTER 2025-01-10 11:04 | Outpatient (RCR) | payer OTHER, SELFPAY ==
[2025-01-18 11:03] LABS: HDL Cholesterol 45 mg/dl; LDL Cholesterol, Calculated 80 mg/dl; Very Low Density Lipoprotein 22 mg/dl (0-30)
== END 2025-01-10 23:59 | disposition home or self-care (01) ==
LOC: CRHB 11:04
PROVIDERS: ATTENDING PHYSICIAN Internal Medicine Cardiovascular Disease; FAMILY PHYSICIAN Family Medicine; REFERRING PHYSICIAN Nurse Practitioner
DX: Z95.4 Presence of other heart-valve replacement (principal); I25.10 Atherosclerotic heart disease of native coronary artery without angina pectoris; I10 Essential (primary) hypertension; E78.5 Hyperlipidemia, unspecified
CPT/HCPCS: 36415; 80061; G0422; G0423

== ENCOUNTER → 2025-03-05 09:25 | Outpatient (REF) | payer OTHER, SELFPAY | LOC: HWRCS 09:25 | PROVIDERS: ATTENDING PHYSICIAN Thoracic Surgery (Cardiothoracic Vascular Surgery); FAMILY PHYSICIAN Family Medicine | DX: Z98.890 Other specified postprocedural states (principal) | CPT/HCPCS: 93306 ==